=== PATIENT | female | born 1970 | race Caucasian/White ===

== ENCOUNTER 2018-01-30 15:22 | Outpatient (RCR) | payer BC, MEDICARE, SELFPAY ==
[2018-01-30 16:27] VITALS: BP 123/70; PULSE 85; RESP 18; TEMP 36.7; BMI 31.9
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
== END 2018-02-01 23:59 ==
LOC: WC 15:22
PROVIDERS: Family Provider Family Medicine; PCP Family Medicine; Visit Provider Podiatrist
DX: E11.621 Type 2 diabetes mellitus with foot ulcer (principal); E11.42 Type 2 diabetes mellitus with diabetic polyneuropathy; L97.522 Non-pressure chronic ulcer of other part of left foot with fat layer exposed; E11.51 Type 2 diabetes mellitus with diabetic peripheral angiopathy without gangrene; M21.371 Foot drop, right foot; F17.210 Nicotine dependence, cigarettes, uncomplicated
CPT/HCPCS: 11042; 99213; G0463

== ENCOUNTER → 2018-02-19 20:43 | Outpatient (CLI) | payer BC, MEDICARE, SELFPAY ==
--- NOTE | 2018-02-19 21:00 | RAD_ITS ---
STUDY: X-RAY - LEFT FOOT CLINICAL: Female, 47 years old. Left chronic foot ulcer lateral side [place]. TECHNIQUE: 3 view(s) of the foot. COMPARISON: None. FINDINGS: There is a large enthesophyte involving the posterior superior calcaneus at the site of insertion of the Achilles tendon. There is demineralization of osseous structures. Arthropathy of the visualized subtalar, talonavicular, calcaneocuboid, tarsal and tarsometatarsal articulations. Normal metatarsi. Normal metatarsophalangeal joint of the great toe. Normal tibial and fibular sesamoid bones. Normal interphalangeal joint of the great toe. Normal phalanges of the great toe. Normal second through fifth metatarsophalangeal joints. Normal interphalangeal joints and phalanges of the lesser toes. Soft tissue swelling along the medial hindfoot on AP and oblique view. There is arteriosclerosis. RAD/Foot min 3 Views IMPRESSION: Degenerative changes, osteopenia, arteriosclerosis. No sign of osteomyelitis or ulceration detected. Electronically Signed: Violet Durant MD at 1:44 EDT , Service support ,
[2018-02-19 21:53] LABS: ALB/GLOB Ratio 0.7 RATIO (0.9-2.4); AST(SGOT) 9 U/L (15-37); Alanine Aminotransfer ALT/SGPT 18 U/L (13-56); Alkaline Phosphatase 112 U/L (45-117); Anion Gap 10 (5-15); BUN 10 mg/dL (7-18); BUN/Creat Ratio 11.2 RATIO (10-20); Calcium,Total 8.4 mg/dL (8.5-10.1); Chloride 99 mmol/L (98-107); Creatinine, Serum 0.89 mg/dL (0.55-1.02); EST Glomerular Filtration Rate 72 mL/min (>60); Est Glom Filt Rate - Afr Amer 88 mL/min (>60); Globulin 4.2 g/dL (2.2-4.2); Glucose 346 mg/dL (74-106); Potassium 3.6 mmol/L (3.5-5.1); Protein, Total 7.2 g/dL (6.4-8.2); Sodium Level 135 mmol/L (136-145)
[2018-02-19 21:58] LABS: Hemoglobin A1c 9.3 % (4.2-6.3)
[2018-02-19 22:02] LABS: Absolute Neutrophil Count 6.9 X10^3/uL (2.0-7.7); Basophil# 0.01 X10^3/uL; Basophil% 0.1 % (0-1); Eosinophil# 0.05 X10^3/uL; Eosinophils% 0.5 % (0-5); Hematocrit 38.3 % (37-47); Hemoglobin 13.4 g/dl (12.0-15.0); Lymphocyte % 23.8 % (19-41); Mean Corpuscular Hgb 29.9 pg (27.0-32.0); Mean Corpuscular Volume 85.5 fL (81-99); Mean Platelet Vol. 9.4 fl (6.2-12.0); Monocyte# 0.66 X10^3/uL; Monocyte% 6.6 % (0-10); Neutrophil # 6.91 X10^3/uL (2.7-7.7); Neutrophil % 68.6 % (47-70); Platelet Count 291 K/mm3 (150-450); RBC Distribution Width SD 40.1 fl (35.1-43.9); Red Blood Count 4.48 M/mm3 (4.2-5.4); White Blood Count 10.1 K/mm3 (4.4-11.0)
[2018-02-19 22:04] LABS: POSITIVE COUNT NO; POSITIVE DIFFERENTIAL NO; POSITIVE MORPHOLOGY NO
== END ==
PROVIDERS: Family Provider Family Medicine; PCP Family Medicine; Visit Provider Podiatrist
DX: L97.529 Non-pressure chronic ulcer of other part of left foot with unspecified severity (principal)
CPT/HCPCS: 36415; 73630; 80053; 83036; 85025

== ENCOUNTER 2018-02-27 16:15 | Outpatient (RCR) | payer BC, MEDICARE, SELFPAY ==
[2018-02-02 01:46] VITALS: BP 123/70; PULSE 85; RESP 18; TEMP 36.7
[2018-02-20 16:07] VITALS: BP 143/78; PULSE 97; RESP 18; TEMP 36.6
--- NOTE | 2018-02-20 16:56 | PCM.WC.PN ---
(1) Chronic ulcer of left foot with fat layer exposed Status: Chronic Code(s): L97.522 - Non-pressure chronic ulcer of other part of left foot with fat layer exposed (2) Type 2 diabetes mellitus with diabetic polyneuropathy Status: Chronic Code(s): E11.42 - Type 2 diabetes mellitus with diabetic polyneuropathy (3) Malnutrition Status: Suspected Code(s): E46 - Unspecified protein-calorie malnutrition (4) Delayed wound healing Status: Chronic Code(s): T14.8XXD - Other injury of unspecified body region, subsequent encounter (5) Peripheral vascular disease Status: Suspected Code(s): I73.9 - Peripheral vascular disease, unspecified Type of Wound Date of Service: 02/24/18 Chief Complaint: Left foot ulcer History of Wound: This pleasant 47-year-old female with multiple comorbidities was presenting to the wound healing center today for evaluation of left foot ulcer that has delayed healing. She has continued pain. She has missed several appointments due to transportation issues. She did not obtain the recommended vascular tests that were previously ordered. She denies odor or redness. She has been changing the dressing at home. She is very anxious today. Progress of Wound: Stable - Physical Exam Vital Signs Temp Pulse Resp BP 97.8 F 97 18 143/78 H 02/20/18 16:07 02/20/18 16:07 02/20/18 16:07 02/20/18 16:07 General: Alert, Oriented x3, Cooperative Extremities: No cyanosis, Capillary Refill Less than 3 Seconds, No Calf Tenderness - Negative Xavier and Elliott bilateral, Diminished Peripheral Pulses, Edema, - - Dropfoot right lower extremity Skin: Ulcer/ Wound - No purulence, erythema, streaking, odor, or infection left foot. The peripheral skin is atrophic. There is no probing deep structures or deep tissue exposed, - - The base is granular and pale with minimal fibrous tissue Wound Measurements and Assessment WC - Nurse 1 - General Ulcer Measurement Start: 02/20/18 08:03 Freq: Status: Active Protocol: Activity Type Activity Date Activity User E-Sign Co-Sign Detail Recorded Client Recorded Date Recorded By Document 02/20/18 16:07 [facility] [id number] 02/20/18 16:11 [facility] 02/20/18 16:07 Wound Center Nurse 1 [Ulcer Assessment] #2 left lateral foot -Combined with other wound No -Current Size (cm) - Length 1.6 -Current Size (cm) - Width 0.5 -Current Size (cm) - Depth 0.2 -Total Square Cm 0.80 -Photo Taken No -Epithelialization None Present -Tunneling No -Undermining/Tunneling No -Circular Undermining No -Exudate Amt Small (1-33%) -Exudate Type Serous -Wound Margin Thickened -Granulation Amt Small (1-33%) -Granulation Quality [place] -Slough/Fibrin Yes -Necrosis Amt Large (67-100%) -Necrotic Tissue Type Adherent Slough -Texture (Fidelia-wound Skin Appearance) Scarring -Moisture (Fidelia-wound Skin Appearance Dry/Scaly ) -Color (Fidelia-wound Skin Appearance) Assessed -Temperature (Fidelia-wound Skin No Abnormality Appearance) (Pt Warm) -Tenderness on Palpation (Fidelia-wound Yes Skin Appearance) -Ulcer Cleansing Rinsed/ Irrigated with Saline -Foul Odor after Cleansing No -Anesthetic Used 5% Lidocaine Gel [Edema Assessment] -Lower Limb Edema Present Yes -Right Calf (cm) 40.1 -Right Ankle (cm) 23 -Left Calf (cm) 36 -Left Ankle (cm) 21 WC - Nurse 2 - General Ulcer CM Notes Start: 02/20/18 08:03 Freq: Status: Active Protocol: Activity Type Activity Date Activity User E-Sign Co-Sign Detail Recorded Client Recorded Date Recorded By Document 02/20/18 16:38 [id number] 02/20/18 16:38 02/20/18 16:38 Wound Center Nurse 2 [Procedure/Treatment] #2 left lateral foot -Time 16:38 -Correct Patient Yes -Correct Side, Site, Position Yes -Correct Procedure Yes -Procedure Performed Yes -Type of Procedure Debridement -Clinical Debridement Subcutaneous -Post Debridement Size (cm) - Length 1.6 -Post Debridement Size (cm) - Width 0.6 -Post Debridement Size (cm) - Depth 0.2 -Total Square Cm 0.96 -Wound/Ulcer Outcome Not Healed -Ulcer Cleansing Rinsed/ Irrigated with Saline -Foul Odor after Cleansing No -Bioengineered Tissue Yes -Type of bioengineered Tissue [id number] -Expiration Date 09/02/19 -Product Lot Number [id number] -Percent Used 100 -Saline Lot Number [id number] -Bleeding Controlled with Pressure -Treatment Response Procedure Tolerated Well [See Physician Procedure note for Specifics] Pain Scale: 0-10 Numeric [Pain] -Is Patient Pain Free? Yes Musculoskeletal: No Tenderness to Palpation of Joints or Extremities, Muscle Wasting Neurological: - - Lack of normal sensation light touch; hypersensitivity with wound manipulation and periwound manipulation Psych/Mental Status: Normal Affect, Appropriate Debridement Note Post-Debridement Measurements/Treatment WC - Nurse 2 - General Ulcer CM Notes Start: 02/20/18 08:03 Freq: Status: Active Protocol: Activity Type Activity Date Activity User E-Sign Co-Sign Detail Recorded Client Recorded Date Recorded By Document 02/20/18 16:38 [id number] 02/20/18 16:38 02/20/18 16:38 Wound Center Nurse 2 #2 left lateral foot -Time 16:38 -Correct Patient Yes -Correct Side, Site, Position Yes -Correct Procedure Yes -Procedure Performed Yes -Type of Procedure Debridement -Clinical Debridement Subcutaneous -Post Debridement Size (cm) - Length 1.6 -Post Debridement Size (cm) - Width 0.6 -Post Debridement Size (cm) - Depth 0.2 -Total Square Cm 0.96 -Wound/Ulcer Outcome Not Healed -Ulcer Cleansing Rinsed/ Irrigated with Saline -Foul Odor after Cleansing No -Bioengineered Tissue Yes -Type of bioengineered Tissue [id number] -Expiration Date 09/02/19 -Product Lot Number [id number] -Percent Used 100 -Saline Lot Number [id number] -Bleeding Controlled with Pressure -Treatment Response Procedure Tolerated Well Pain Scale: 0-10 Numeric Is Patient Pain Free? Yes Wound debrided: lateral foot Laterality: Left Wound Grade/Stage: grade 1 Type of Debridement: Excisional debridement Anesthesia Used: 4% Lidocaine Solution Depth: in the subcutaneous layer Percentage of wound debrided: 100 Instrument Used: #15 blade Tissue Removed: fibrous, devitalized subcutaneous, biofilm, slough Severity: Fat Layer Exposed Amount of bleeding with debridement: Mild Bleeding Controlled with: Pressure Patient tolerated procedure well Assessment/Plan Assessment: See current problems Plan: I reviewed and discussed her case today. I recommend workup with further diagnostic data including labs (CBC, CMP, hemoglobin A1c), left foot x-ray, and noninvasive arterial studies. Orders were provided at her last visit and were provided again today. She obtain these after clinic at a later time and her white blood cell count is 10.1 and hemoglobin A1c is 9.3%. CMP did not demonstrate gross abnormalities. I reassured her no local or systemic signs of infection are noted. I recommended improved diabetic management and offered her nutrition referral. She refuses today and is upset by this recommendation. A culture was obtained today to assess for unwanted biofilm or bacterial colonization that may be impeding healing. I will monitor for the results. The ulcer site was debrided with a 15 blade as noted in the clinical panel and I recommend change dressing daily with Andree. Due to the chronicity and lack of healing I do recommend an advanced wound care product. Verbal consent was obtained for purapply, antimicrobial and collagen dressing. This is applied according to standard protocol and was secured in place with Steri-Strips and wound veil. She tolerated this well. She was advised to leave this intact until she returns next week. Prior authorization for advanced wound care product derived from amniotic cord cells, epi fix, will be initiated after her periwound inflammation has improved. She is amenable to proceed with this plan. To keep pressure off of the ulcer site by avoiding laying directly on the lateral foot while in bed. I also provided a prescription for a cam walker boot with offloading pocket gets fabricated take pressure off the ulcer site. She was advised to only do partial touchdown to the left lower extremity with walker assistance. We also discussed future order for right drop foot brace and will perform this after her initial wound care plan is started. I recommend nutritional optimization to improve her healing potential at her initial visit. She was advised to stop smoking because this can also impede healing. We discussed the etiology and anticipated healing and management of this ulcer from a wound care standpoint as well as medical standpoint. I answered all of her questions. I recommend she follow-up at the wound healing center 1 week or call sooner if she has any questions or concerns.
[2018-02-27 16:38] VITALS: BP 145/85; PULSE 104; RESP 16; TEMP 36.8
--- NOTE | 2018-02-27 17:43 | PCM.WC.PN ---
(1) Chronic ulcer of left foot with fat layer exposed Status: Chronic Current Visit: Yes Code(s): L97.522 - Non-pressure chronic ulcer of other part of left foot with fat layer exposed (2) Type 2 diabetes mellitus with diabetic polyneuropathy Status: Chronic Current Visit: Yes Code(s): E11.42 - Type 2 diabetes mellitus with diabetic polyneuropathy (3) Malnutrition Status: Suspected Current Visit: Yes Code(s): E46 - Unspecified protein-calorie malnutrition (4) Delayed wound healing Status: Chronic Current Visit: Yes Code(s): T14.8XXD - Other injury of unspecified body region, subsequent encounter (5) Peripheral vascular disease Status: Suspected Current Visit: Yes Code(s): I73.9 - Peripheral vascular disease, unspecified (6) MRSA (methicillin resistant staph aureus) culture positive Status: Chronic Current Visit: Yes Code(s): Z22.322 - Carrier or suspected carrier of Methicillin resistant Staphylococcus aureus Type of Wound Date of Service: 02/27/18 Chief Complaint: Left foot ulcer History of Wound: This pleasant 47-year-old female with multiple comorbidities was presenting to the wound healing center today for evaluation of left foot ulcer that has delayed healing. She has continued pain. Her vascular noninvasive studies are scheduled for this upcoming Sunday and these results are pending. She denies odor or redness. She has been changing the dressing at home. She did start her antibiotic, doxycycline, as advised yesterday due to her MRSA growth in her wound. She kept her dressing clean dry and intact this past week as advised. Progress of Wound: Quality improving - Physical Exam Vital Signs Temp Pulse Resp BP 98.2 F 104 H 16 145/85 H 02/27/18 16:38 02/27/18 16:38 02/27/18 16:38 02/27/18 16:38 General: Alert, Oriented x3, Cooperative Extremities: No cyanosis, Capillary Refill Less than 3 Seconds, No Calf Tenderness - Negative Xavier and Elliott sign bilateral, Diminished Peripheral Pulses, Edema - Mild left lower extremity Skin: Ulcer/ Wound - No purulence, no erythema, streaking, odor, no infection eschar exposed deep tissue left foot. The wound bed quality has improved with increased granulation tissue. In the periwound inflammation is nearly resolved. There is no fluctuance on palpation. Significant tenderness is noted with wound debridement and palpation. Peripheral skin is atrophic and hairless. Wound Measurements and Assessment WC - Nurse 1 - General Ulcer Measurement Start: 02/20/18 08:03 Freq: Status: Active Protocol: Activity Type Activity Date Activity User E-Sign Co-Sign Detail Recorded Client Recorded Date Recorded By Document 02/27/18 16:38 DL [id number] 02/27/18 16:40 DL 02/27/18 16:38 Wound Center Nurse 1 [Ulcer Assessment] #2 left lateral foot -Current Size (cm) - Length 2 -Current Size (cm) - Width 0.5 -Current Size (cm) - Depth 0.2 -Total Square Cm 1.0 -Photo Taken No -Exudate Amt Medium (34-66%) -Exudate Type Serous -Wound Margin Distinct, Outline Attached -Granulation Amt Large (67-100%) -Granulation Quality Red -Necrosis Amt Small (1-33%) -Necrotic Tissue Type Adherent Slough -Structure Exposed N/A -Texture (Fidelia-wound Skin Appearance) Scarring -Moisture (Fidelia-wound Skin Appearance Maceration ) -Color (Fidelia-wound Skin Appearance) No Abnormality -Temperature (Fidelia-wound Skin No Abnormality Appearance) (Pt Warm) -Tenderness on Palpation (Fidelia-wound No Skin Appearance) -Ulcer Cleansing Rinsed/ Irrigated with Saline -Foul Odor after Cleansing No -Anesthetic Used 5% Lidocaine Gel - Nurse 2 - General Ulcer CM Notes Start: 02/20/18 08:03 Freq: Status: Active Protocol: Activity Type Activity Date Activity User E-Sign Co-Sign Detail Recorded Client Recorded Date Recorded By Document 02/27/18 17:17 [id number] 02/27/18 17:22 02/27/18 17:17 Wound Center Nurse 2 [Procedure/Treatment] -Time 17:17 -Correct Patient Yes -Correct Side, Site, Position Yes -Correct Procedure Yes -Procedure Performed Yes -Type of Procedure Debridement -Clinical Debridement Subcutaneous -Post Debridement Size (cm) - Length 2.1 -Post Debridement Size (cm) - Width 0.6 -Post Debridement Size (cm) - Depth 0.2 -Total Square Cm 1.26 -Wound/Ulcer Outcome Not Healed -Ulcer Cleansing Rinsed/ Irrigated with Saline -Foul Odor after Cleansing No -Bioengineered Tissue Yes -Type of bioengineered Tissue [id number] -Expiration Date 07/14/19 -Product Lot Number [id number] -Percent Used 100 -Saline Lot Number [id number] -Topical Lidocaine (%) 5 -Bleeding Controlled with Pressure -Treatment Response Procedure Tolerated Well [See Physician Procedure note for Specifics] Pain Scale: 0-10 Numeric [Pain] -Is Patient Pain Free? Yes Musculoskeletal: No Tenderness to Palpation of Joints or Extremities, Muscle Wasting, - - Right lower extremity dropfoot Neurological: Sensory exam intact to light touch and pain - Hypersensitivity Psych/Mental Status: Normal Affect, Appropriate Debridement Note Post-Debridement Measurements/Treatment WC - Nurse 2 - General Ulcer CM Notes Start: 02/20/18 08:03 Freq: Status: Active Protocol: Activity Type Activity Date Activity User E-Sign Co-Sign Detail Recorded Client Recorded Date Recorded By Document 02/20/18 16:38 [id number] 02/20/18 16:38 Document 02/27/18 17:17 [email or web address] 02/27/18 17:22 02/20/18 02/27/18 16:38 17:17 Wound Center Nurse 2 #2 left lateral foot -Time 16:38 17:17 -Correct Patient Yes Yes -Correct Side, Site, Position Yes Yes -Correct Procedure Yes Yes -Procedure Performed Yes Yes -Type of Procedure Debridement Debridement -Clinical Debridement Subcutaneous Subcutaneous -Post Debridement Size (cm) - Length 1.6 2.1 -Post Debridement Size (cm) - Width 0.6 0.6 -Post Debridement Size (cm) - Depth 0.2 0.2 -Total Square Cm 0.96 1.26 -Wound/Ulcer Outcome Not Healed Not Healed -Ulcer Cleansing Rinsed/ Rinsed/ Irrigated with Irrigated with Saline Saline -Foul Odor after Cleansing No No -Bioengineered Tissue Yes Yes -Type of bioengineered Tissue [id number] -Expiration Date 09/02/19 07/14/19 -Product Lot Number [id number] -Percent Used 100 100 -Saline Lot Number [id number] -Topical Lidocaine (%) 5 -Bleeding Controlled with Pressure Pressure -Treatment Response Procedure Procedure Tolerated Well Tolerated Well Pain Scale: 0-10 Numeric Is Patient Pain Free? Yes Yes Wound debrided: lateral foot Laterality: Left Wound Grade/Stage: grade 1 Type of Debridement: Excisional debridement Anesthesia Used: 4% Lidocaine Solution Depth: in the subcutaneous layer Percentage of wound debrided: 100 Instrument Used: #15 blade Tissue Removed: fibrous, devitalized subcutaneous, biofilm, slough Severity: Fat Layer Exposed Amount of bleeding with debridement: Mild Bleeding Controlled with: Pressure Patient tolerated procedure well Assessment/Plan Active Problems Type 2 diabetes mellitus with diabetic polyneuropathy (Chronic) Chronic ulcer of left foot with fat layer exposed (Chronic) Delayed wound healing (Chronic) MRSA (methicillin resistant staph aureus) culture positive (Chronic) Assessment: See current problems Plan: I reviewed and discussed her case today. I recommend workup with further diagnostic data including labs (CBC, CMP, hemoglobin A1c), left foot x-ray, and noninvasive arterial studies. These results were reviewed as a following: She obtain these after clinic at a later time and her white blood cell count is 10.1 and hemoglobin A1c is 9.3%. CMP did not demonstrate gross abnormalities. I reassured her no local or systemic signs of infection are noted. I recommended improved diabetic management and offered her nutrition referral. She refuses today and is upset by this recommendation. A culture was obtained today to assess for unwanted biofilm or bacterial colonization that may be impeding healing; MRSA was identified. She was advised to complete the course of doxycycline. The ulcer site was debrided with a 15 blade as noted in the clinical panel and I recommend additional puraply application today. due to the chronicity and lack of healing I do recommend an advanced wound care product. Verbal consent was obtained for puraply, antimicrobial and collagen dressing. This is applied according to standard protocol and was secured in place with Steri-Strips and wound veil. She tolerated this well. She was advised to leave this intact until she returns next week. Prior authorization for advanced wound care product derived from amniotic cord cells, epi fix, will be initiated reviewed [facility]. The indications, purpose, plan application and management were; she is amenable to proceed. To keep pressure off of the ulcer site by avoiding laying directly on the lateral foot while in bed. I also provided a prescription for a cam walker boot with offloading pocket gets fabricated take pressure off the ulcer site. She was advised to only do partial touchdown to the left lower extremity with walker assistance. We also discussed future order for right drop foot brace and will perform this after her initial wound care plan is started. I recommend nutritional optimization to improve her healing potential at her initial visit. She was advised to stop smoking because this can also impede healing. We discussed the etiology and anticipated healing and management of this ulcer from a wound care standpoint as well as medical standpoint. She is scheduled for noninvasive vascular study this Sunday and I encouraged her to attend as scheduled. I answered all of her questions. I recommend she follow-up at the wound healing center 1 week or call sooner if she has any questions or concerns.
== END 2018-03-03 23:59 ==
LOC: WC 16:15
PROVIDERS: Family Provider Family Medicine; PCP Family Medicine; Visit Provider Podiatrist
DX: E11.621 Type 2 diabetes mellitus with foot ulcer (principal); E11.42 Type 2 diabetes mellitus with diabetic polyneuropathy; E11.51 Type 2 diabetes mellitus with diabetic peripheral angiopathy without gangrene; L97.522 Non-pressure chronic ulcer of other part of left foot with fat layer exposed; Z86.14 Personal history of Methicillin resistant Staphylococcus aureus infection
CPT/HCPCS: 15275; 87070; 87077; 87186; 87205; Q4172

== ENCOUNTER 2018-03-20 15:45 | Outpatient (RCR) | payer BC, MEDICARE, SELFPAY ==
[2018-03-04 01:19] VITALS: BP 145/85; PULSE 104; RESP 16; TEMP 36.8
[2018-03-05 15:52] VITALS: BP 153/83; PULSE 102; RESP 18; TEMP 35.7
--- NOTE | 2018-03-05 16:32 | PCM.WC.PN ---
(1) Chronic ulcer of left foot with fat layer exposed Status: Chronic Current Visit: Yes Code(s): L97.522 - Non-pressure chronic ulcer of other part of left foot with fat layer exposed (2) Type 2 diabetes mellitus with diabetic polyneuropathy Status: Chronic Current Visit: Yes Code(s): E11.42 - Type 2 diabetes mellitus with diabetic polyneuropathy (3) Malnutrition Status: Suspected Current Visit: Yes Code(s): E46 - Unspecified protein-calorie malnutrition (4) Delayed wound healing Status: Chronic Current Visit: Yes Code(s): T14.8XXD - Other injury of unspecified body region, subsequent encounter (5) MRSA (methicillin resistant staph aureus) culture positive Status: Chronic Current Visit: Yes Code(s): Z22.322 - Carrier or suspected carrier of Methicillin resistant Staphylococcus aureus (6) Left foot pain Status: Chronic Current Visit: Yes Code(s): M79.672 - Pain in left foot Type of Wound Date of Service: 03/05/18 Chief Complaint: Left foot ulcer History of Wound: This pleasant 47-year-old female with multiple comorbidities was presenting to the wound healing center today for evaluation of left foot ulcer that has delayed healing. She has continued pain at night and with ulcer debridements; she is extremely anxious about debridement today. She did not obtain her noninvasive vascular study test yet. She denies odor or redness. She has been changing the dressing at home. She has 1 day left of her antibiotic doxycycline. She kept her dressing clean dry and intact this past week as advised. Progress of Wound: Improving - Physical Exam Vital Signs Temp Pulse Resp BP 96.2 F L 102 H 18 153/83 H 03/05/18 15:52 03/05/18 15:52 03/05/18 15:52 03/05/18 15:52 General: Alert, Oriented x3, Cooperative Extremities: No cyanosis, Capillary Refill Less than 3 Seconds, No Calf Tenderness - Negative Xavier and Elliott left, Diminished Peripheral Pulses, Edema Skin: Ulcer/ Wound - No purulence, no erythema, streaking, no odor, no infection. There is peripheral epithelialization noted and no deep tissue was noted. The peripheral skin is atrophic and hairless left foot Wound Measurements and Assessment WC - Nurse 1 - General Ulcer Measurement Start: 03/05/18 15:52 Freq: Status: Active Protocol: Activity Type Activity Date Activity User E-Sign Co-Sign Detail Recorded Client Recorded Date Recorded By Document 03/05/18 15:52 DL [id number] 03/05/18 15:57 DL 03/05/18 15:52 Wound Center Nurse 1 [Ulcer Assessment] #2 left lateral foot -Current Size (cm) - Length 2.1 -Current Size (cm) - Width 0.6 -Current Size (cm) - Depth 0.3 -Total Square Cm 1.26 -Photo Taken No -Exudate Amt Medium (34-66%) -Exudate Type Serosanguineous -Wound Margin Thickened -Granulation Amt Medium (34-66%) -Granulation Quality [place] -Necrosis Amt Medium (34-66%) -Necrotic Tissue Type Adherent Slough -Structure Exposed N/A -Texture (Fidelia-wound Skin Appearance) Localized Edema Scarring -Moisture (Fidelia-wound Skin Appearance Maceration ) -Color (Fidelia-wound Skin Appearance) No Abnormality -Temperature (Fidelia-wound Skin No Abnormality Appearance) (Pt Warm) -Tenderness on Palpation (Fidelia-wound No Skin Appearance) -Ulcer Cleansing Wound Cleanser -Foul Odor after Cleansing No -Anesthetic Used 4% Lidocaine Solution [Edema Assessment] -Left Calf (cm) 35.5 -Left Ankle (cm) 21.3 WC - Nurse 2 - General Ulcer CM Notes Start: 03/05/18 15:52 Freq: Status: Active Protocol: Activity Type Activity Date Activity User E-Sign Co-Sign Detail Recorded Client Recorded Date Recorded By Document 03/05/18 16:18 [id number] 03/05/18 16:29 03/05/18 16:18 Wound Center Nurse 2 [Procedure/Treatment] #2 left lateral foot -Time 16:18 -Correct Patient Yes -Correct Side, Site, Position Yes -Correct Procedure Yes -Procedure Performed Yes -Post Debridement Size (cm) - Length 2.1 -Post Debridement Size (cm) - Width 0.6 -Post Debridement Size (cm) - Depth 0.3 -Total Square Cm 1.26 -Wound/Ulcer Outcome Not Healed -Ulcer Cleansing Rinsed/ Irrigated with Saline -Foul Odor after Cleansing No -Bioengineered Tissue Yes -Type of bioengineered Tissue [id number] -Expiration Date 07/14/19 -Product Lot Number [id number] -Percent Used 100 -Topical Lidocaine (%) 5 -Bleeding Controlled with NA -Other no debridement today -Treatment Response Procedure Tolerated Well [See Physician Procedure note for Specifics] Pain Scale: 0-10 Numeric [Pain] -Is Patient Pain Free? Yes Musculoskeletal: No Tenderness to Palpation of Joints or Extremities, Muscle Wasting, - - Compartments remain soft left foot Neurological: Sensory exam intact to light touch and pain - Hypersensitivity with touch to the wound bed as well as the adjacent foot left Psych/Mental Status: Normal Affect, Agitated, Anxious Debridement Note Post-Debridement Measurements/Treatment WC - Nurse 2 - General Ulcer CM Notes Start: 03/05/18 15:52 Freq: Status: Active Protocol: Activity Type Activity Date Activity User E-Sign Co-Sign Detail Recorded Client Recorded Date Recorded By Document 03/05/18 16:18 TM [id number] 03/05/18 16:29 TM 03/05/18 16:18 Wound Center Nurse 2 #2 left lateral foot -Time 16:18 -Correct Patient Yes -Correct Side, Site, Position Yes -Correct Procedure Yes -Procedure Performed Yes -Post Debridement Size (cm) - Length 2.1 -Post Debridement Size (cm) - Width 0.6 -Post Debridement Size (cm) - Depth 0.3 -Total Square Cm 1.26 -Wound/Ulcer Outcome Not Healed -Ulcer Cleansing Rinsed/ Irrigated with Saline -Foul Odor after Cleansing No -Bioengineered Tissue Yes -Type of bioengineered Tissue [id number] -Expiration Date 07/14/19 -Product Lot Number [id number] -Percent Used 100 -Topical Lidocaine (%) 5 -Bleeding Controlled with NA -Other no debridement today -Treatment Response Procedure Tolerated Well Pain Scale: 0-10 Numeric Is Patient Pain Free? Yes No debridement was completed today - The patient refused Assessment/Plan Active Problems Type 2 diabetes mellitus with diabetic polyneuropathy (Chronic) Chronic ulcer of left foot with fat layer exposed (Chronic) Delayed wound healing (Chronic) MRSA (methicillin resistant staph aureus) culture positive (Chronic) Left foot pain (Chronic) Assessment: See current problems Plan: I reviewed and discussed her case today. I recommend workup with further diagnostic data including labs (CBC, CMP, hemoglobin A1c), left foot x-ray, and noninvasive arterial studies. These results were reviewed as following: She obtain these after clinic at a later time and her white blood cell count is 10.1 and hemoglobin A1c is 9.3%. CMP did not demonstrate gross abnormalities. I reassured her no local or systemic signs of infection are noted. I recommended improved diabetic management and offered her nutrition referral. She refuses again today and is upset by this recommendation. A culture was obtained today to assess for unwanted biofilm or bacterial colonization that may be impeding healing; MRSA was identified. She was advised to complete the course of doxycycline and she is almost done. The ulcer site was not performed because she refused and was screaming and kicking her foot around. due to the chronicity and lack of healing I do recommend an advanced wound care product. Verbal consent was obtained for puraply, antimicrobial and collagen dressing. This is applied according to standard protocol and was secured in place with Steri-Strips and wound veil. She tolerated this well. She was advised to leave this intact until she returns next week. Prior authorization for advanced wound care product derived from amniotic cord cells, epi fix, is still pending. The indications, purpose, plan application and management were; she is amenable to proceed. To keep pressure off of the ulcer site by avoiding laying directly on the lateral foot while in bed. I also provided a prescription for a cam walker boot with offloading pocket gets fabricated take pressure off the ulcer site. She was advised to only do partial touchdown to the left lower extremity with walker assistance. We also discussed future order for right drop foot brace and will perform this after her initial wound care plan is started. I recommend nutritional optimization to improve her healing potential at her initial visit. She was advised to stop smoking because this can also impede healing. We discussed the etiology and anticipated healing and management of this ulcer from a wound care standpoint as well as medical standpoint. She is scheduled for noninvasive vascular study and I encouraged her to attend as scheduled. I answered all of her questions. I recommend she follow-up at the wound healing center 1 week or call sooner if she has any questions or concerns.
[2018-03-13 15:52] VITALS: BP 120/76; PULSE 94; RESP 18; TEMP 36
--- NOTE | 2018-03-13 16:55 | PCM.WC.PN ---
(1) Chronic ulcer of left foot with fat layer exposed Status: Chronic Current Visit: Yes Code(s): L97.522 - Non-pressure chronic ulcer of other part of left foot with fat layer exposed (2) Type 2 diabetes mellitus with diabetic polyneuropathy Status: Chronic Current Visit: Yes Code(s): E11.42 - Type 2 diabetes mellitus with diabetic polyneuropathy (3) Malnutrition Status: Chronic Current Visit: Yes Code(s): E46 - Unspecified protein-calorie malnutrition (4) Delayed wound healing Status: Chronic Current Visit: Yes Code(s): T14.8XXD - Other injury of unspecified body region, subsequent encounter (5) MRSA (methicillin resistant staph aureus) culture positive Status: Chronic Current Visit: Yes Code(s): Z22.322 - Carrier or suspected carrier of Methicillin resistant Staphylococcus aureus (6) Left foot pain Status: Chronic Current Visit: Yes Code(s): M79.672 - Pain in left foot Type of Wound Date of Service: 03/13/18 Chief Complaint: Left foot ulcer History of Wound: This pleasant 47-year-old female with multiple comorbidities was presenting to the wound healing center today for evaluation of left foot ulcer that has delayed healing. She did not obtain her noninvasive vascular study test yet. She denies odor or redness. She has been changing the dressing at home. She completed the course of doxycycline. She kept her dressing clean dry and intact this past week as advised. Progress of Wound: Improving - Physical Exam Vital Signs Temp Pulse Resp BP 96.8 F L 94 18 120/76 03/13/18 15:52 03/13/18 15:52 03/13/18 15:52 03/13/18 15:52 General: Alert, Oriented x3, Cooperative Extremities: No cyanosis, Capillary Refill Less than 3 Seconds, No Calf Tenderness - Negative Xavier and Elliott left, Diminished Peripheral Pulses, Edema - Left foot mild Skin: Ulcer/ Wound - No purulence, erythema, streaking, odor, infection. There is no eschar deep tissue exposed. There is significant peripheral ulcer site maceration and moisture that is resolved after gentle debridement. The peripheral skin is hairless and atrophic left foot the wound bed also has improved to a granular state Wound Measurements and Assessment WC - Nurse 1 - General Ulcer Measurement Start: 03/05/18 15:52 Freq: Status: Active Protocol: Activity Type Activity Date Activity User E-Sign Co-Sign Detail Recorded Client Recorded Date Recorded By Document 03/13/18 15:52 DV [id number] 03/13/18 16:06 DV 03/13/18 15:52 Wound Center Nurse 1 [Ulcer Assessment] #2 left lateral foot -Combined with other wound No -Current Size (cm) - Length 2.1 -Current Size (cm) - Width 0.6 -Current Size (cm) - Depth 0.3 -Total Square Cm 1.26 -Date of Last Picture (Recall this 03/13/18 field) -Photo Taken Yes -Tunneling No -Undermining/Tunneling No -Circular Undermining No -Exudate Amt Medium (34-66%) -Exudate Type Serosanguineous -Wound Margin Indistinct, Non -Visible -Slough/Fibrin Yes -Necrosis Amt Large (67-100%) -Necrotic Tissue Type Adherent Slough -Structure Exposed None/Limited to Skin Breakdown -Texture (Fidelia-wound Skin Appearance) Assessed Induration Scarring -Moisture (Fidelia-wound Skin Appearance Assessed ) Maceration Weeping -Color (Fidelia-wound Skin Appearance) Assessed -Temperature (Fidelia-wound Skin No Abnormality Appearance) (Pt Warm) -Ulcer Cleansing Rinsed/ Irrigated with Saline -Foul Odor after Cleansing No -Anesthetic Used 4% Lidocaine Solution WC - Nurse 2 - General Ulcer CM Notes Start: 03/05/18 15:52 Freq: Status: Active Protocol: Activity Type Activity Date Activity User E-Sign Co-Sign Detail Recorded Client Recorded Date Recorded By Document 03/13/18 16:28 DV [id number] 03/13/18 16:36 DV 03/13/18 16:28 Wound Center Nurse 2 [Procedure/Treatment] -Time 16:30 -Correct Patient Yes -Correct Side, Site, Position Yes -Correct Procedure Yes -Procedure Performed Yes -Type of Procedure Debridement -Clinical Debridement Subcutaneous -Post Debridement Size (cm) - Length 2.2 -Post Debridement Size (cm) - Width 0.7 -Post Debridement Size (cm) - Depth 0.3 -Total Square Cm 1.54 -Wound/Ulcer Outcome Not Healed -Ulcer Cleansing Rinsed/ Irrigated with Saline -Foul Odor after Cleansing No -Bioengineered Tissue Yes -Type of bioengineered Tissue [id number] -Expiration Date 09/02/19 -Product Lot Number [id number] -Percent Used 100 -Saline Lot Number [id number] -Topical Lidocaine (%) 4 -Bleeding Controlled with NA -Treatment Response Procedure Tolerated Well [See Physician Procedure note for Specifics] Pain Scale: 0-10 Numeric [Pain] -Is Patient Pain Free? Yes Musculoskeletal: No Tenderness to Palpation of Joints or Extremities, Muscle Wasting, - - Compartments soft left foot Neurological: Sensory exam intact to light touch and pain - Hypersensitive with subjective burning and radiating symptoms noted as well Psych/Mental Status: Normal Affect, Agitated, Anxious, Restless Debridement Note Post-Debridement Measurements/Treatment WC - Nurse 2 - General Ulcer CM Notes Start: 03/05/18 15:52 Freq: Status: Active Protocol: Activity Type Activity Date Activity User E-Sign Co-Sign Detail Recorded Client Recorded Date Recorded By Document 03/05/18 16:18 TM [id number] 03/05/18 16:29 TM Document 03/13/18 16:28 DV [id number] 03/13/18 16:36 DV 03/05/18 03/13/18 16:18 16:28 Wound Center Nurse 2 #2 left lateral foot -Time 16:18 16:30 -Correct Patient Yes Yes -Correct Side, Site, Position Yes Yes -Correct Procedure Yes Yes -Procedure Performed Yes Yes -Type of Procedure Debridement -Clinical Debridement Subcutaneous -Post Debridement Size (cm) - Length 2.1 2.2 -Post Debridement Size (cm) - Width 0.6 0.7 -Post Debridement Size (cm) - Depth 0.3 0.3 -Total Square Cm 1.26 1.54 -Wound/Ulcer Outcome Not Healed Not Healed -Ulcer Cleansing Rinsed/ Rinsed/ Irrigated with Irrigated with Saline Saline -Foul Odor after Cleansing No No -Bioengineered Tissue Yes Yes -Type of bioengineered Tissue [id number] -Expiration Date 07/14/19 09/02/19 -Product Lot Number [id number] -Percent Used 100 100 -Saline Lot Number [id number] -Topical Lidocaine (%) 5 4 -Bleeding Controlled with NA NA -Other no debridement today -Treatment Response Procedure Procedure Tolerated Well Tolerated Well Pain Scale: 0-10 Numeric Is Patient Pain Free? Yes Yes Wound debrided: lateral foot Laterality: Left Wound Grade/Stage: grade 1 Type of Debridement: Excisional debridement Anesthesia Used: 4% Lidocaine Solution Depth: in the subcutaneous layer Percentage of wound debrided: 100 Instrument Used: #15 blade Tissue Removed: fibrous, devitalized subcutaneous, biofilm, slough Severity: Fat Layer Exposed Amount of bleeding with debridement: Mild Bleeding Controlled with: Pressure Patient tolerated procedure well Assessment/Plan Active Problems Type 2 diabetes mellitus with diabetic polyneuropathy (Chronic) Chronic ulcer of left foot with fat layer exposed (Chronic) Malnutrition (Chronic) Delayed wound healing (Chronic) MRSA (methicillin resistant staph aureus) culture positive (Chronic) Left foot pain (Chronic) Assessment: See current problems Plan: I reviewed and discussed her case today. I recommend workup with further diagnostic data including labs (CBC, CMP, hemoglobin A1c), left foot x-ray, and noninvasive arterial studies. These results were reviewed as following: She obtain these after clinic at a later time and her white blood cell count is 10.1 and hemoglobin A1c is 9.3%. CMP did not demonstrate gross abnormalities. I reassured her no local or systemic signs of infection are noted. I recommended improved diabetic management and offered her nutrition referral. She refuses again today and is upset by this recommendation. A culture was obtained today to assess for unwanted biofilm or bacterial colonization that may be impeding healing; MRSA was identified. She was advised to complete the course of doxycycline and she is almost done. The ulcer site was debrided and an excisional subcutaneous manner as noted in the clinical nursing panel. Due to the chronicity and lack of healing I do recommend an advanced wound care product, epi fix. The prior authorization for this is still pending. Verbal consent was obtained for puraply patient today, antimicrobial and collagen dressing. This was applied according to standard protocol and was secured in place with Steri-Strips and wound veil. She tolerated this well. She was advised to leave this intact until she returns next week. To keep pressure off of the ulcer site by avoiding laying directly on the lateral foot while in bed. I also provided a prescription for a cam walker boot with offloading pocket gets fabricated take pressure off the ulcer site. She was advised to only do partial touchdown to the left lower extremity with walker assistance. We also discussed future order for right drop foot brace and will perform this after her initial wound care plan is started. I recommend nutritional optimization to improve her healing potential at her initial visit. She was advised to stop smoking because this can also impede healing. We discussed the etiology and anticipated healing and management of this ulcer from a wound care standpoint as well as medical standpoint. She is scheduled for noninvasive vascular study and I encouraged her to attend as scheduled. I answered all of her questions. I recommend she follow-up at the wound healing center 1 week or call sooner if she has any questions or concerns.
--- NOTE | 2018-03-13 16:59 | PN.PCM_ITS ---
(1) Chronic ulcer of left foot with fat layer exposed Status: Chronic Current Visit: Yes Code(s): L97.522 - Non-pressure chronic ulcer of other part of left foot with fat layer exposed (2) Type 2 diabetes mellitus with diabetic polyneuropathy Status: Chronic Current Visit: Yes Code(s): E11.42 - Type 2 diabetes mellitus with diabetic polyneuropathy (3) Malnutrition Status: Chronic Current Visit: Yes Code(s): E46 - Unspecified protein- calorie malnutrition (4) Delayed wound healing Status: Chronic Current Visit: Yes Code(s): T14.8XXD - Other injury of unspecified body region, subsequent encounter (5) MRSA (methicillin resistant staph aureus) culture positive Status: Chronic Current Visit: Yes Code(s): Z22.322 - Carrier or suspected carrier of Methicillin resistant Staphylococcus aureus (6) Left foot pain Status: Chronic Current Visit: Yes Code(s): M79.672 - Pain in left foot Type of Wound Date of Service: 03/13/18 Chief Complaint: Left foot ulcer History of Wound: This pleasant 47-year-old female with multiple comorbidities was presenting to the wound healing center today for evaluation of left foot ulcer that has delayed healing. She did not obtain her noninvasive vascular study test yet. She denies odor or redness. She has been changing the dressing at home. She completed the course of doxycycline. She kept her dressing clean dry and intact this past week as advised. Progress of Wound: Improving - Physical Exam Vital Signs Temp Pulse Resp BP 96.8 F L 94 18 120/76 03/13/18 15:52 03/13/18 15:52 03/13/18 15:52 03/13/18 15:52 General: Alert, Oriented x3, Cooperative Extremities: No cyanosis, Capillary Refill Less than 3 Seconds, No Calf Tenderness - Negative Xavier and Elliott left, Diminished Peripheral Pulses, Edema - Left foot mild Skin: Ulcer/ Wound - No purulence, erythema, streaking, odor, infection. There is no eschar deep tissue exposed. There is significant peripheral ulcer site maceration and moisture that is resolved after gentle debridement. The peripheral skin is hairless and atrophic left foot the wound bed also has improved to a granular state Wound Measurements and Assessment WC - Nurse 1 - General Ulcer Measurement Start: 03/05/18 15:52 Freq: Status: Active Protocol: Activity Type Activity Date Activity User E-Sign Co-Sign Detail Recorded Client Recorded Date Recorded By Document 03/13/18 15:52 DV [id number] 03/13/18 16:06 DV 03/13/18 15:52 Wound Center Nurse 1 [Ulcer Assessment] #2 left lateral foot -Combined with other wound No -Current Size (cm) - Length 2.1 -Current Size (cm) - Width 0.6 -Current Size (cm) - Depth 0.3 -Total Square Cm 1.26 -Date of Last Picture (Recall this 03/13/18 field) -Photo Taken Yes -Tunneling No -Undermining/Tunneling No -Circular Undermining No -Exudate Amt Medium (34-66%) -Exudate Type Serosanguineous -Wound Margin Indistinct, Non -Visible -Slough/Fibrin Yes -Necrosis Amt Large (67-100%) -Necrotic Tissue Type Adherent Slough -Structure Exposed None/Limited to Skin Breakdown -Texture (Fidelia-wound Skin Appearance) Assessed Induration Scarring -Moisture (Fidelia-wound Skin Appearance Assessed ) Maceration Weeping -Color (Fidelia-wound Skin Appearance) Assessed -Temperature (Fidelia-wound Skin No Abnormality Appearance) (Pt Warm) -Ulcer Cleansing Rinsed/ Irrigated with Saline -Foul Odor after Cleansing No -Anesthetic Used 4% Lidocaine Solution WC - Nurse 2 - General Ulcer CM Notes Start: 03/05/18 15:52 Freq: Status: Active Protocol: Activity Type Activity Date Activity User E-Sign Co-Sign Detail Recorded Client Recorded Date Recorded By Document 03/13/18 16:28 DV [id number] 03/13/18 16:36 DV 03/13/18 16:28 Wound Center Nurse 2 [Procedure/Treatment] -Time 16:30 -Correct Patient Yes -Correct Side, Site, Position Yes -Correct Procedure Yes -Procedure Performed Yes -Type of Procedure Debridement -Clinical Debridement Subcutaneous -Post Debridement Size (cm) - Length 2.2 -Post Debridement Size (cm) - Width 0.7 -Post Debridement Size (cm) - Depth 0.3 -Total Square Cm 1.54 -Wound/Ulcer Outcome Not Healed -Ulcer Cleansing Rinsed/ Irrigated with Saline -Foul Odor after Cleansing No -Bioengineered Tissue Yes -Type of bioengineered Tissue [id number] -Expiration Date 09/02/19 -Product Lot Number [id number] -Percent Used 100 -Saline Lot Number [id number] -Topical Lidocaine (%) 4 -Bleeding Controlled with NA -Treatment Response Procedure Tolerated Well [See Physician Procedure note for Specifics] Pain Scale: 0-10 Numeric [Pain] -Is Patient Pain Free? Yes Musculoskeletal: No Tenderness to Palpation of Joints or Extremities, Muscle Was ting, - - Compartments soft left foot Neurological: Sensory exam intact to light touch and pain - Hypersensitive with subjective burning and radiating symptoms noted as well Psych/Mental Status: Normal Affect, Agitated, Anxious, Restless Debridement Note Post-Debridement Measurements/Treatment WC - Nurse 2 - General Ulcer CM Notes Start: 03/05/18 15:52 Freq: Status: Active Protocol: Activity Type Activity Date Activity User E-Sign Co-Sign Detail Recorded Client Recorded Date Recorded By Document 03/05/18 16:18 TM [id number] 03/05/18 16:29 TM Document 03/13/18 16:28 DV [id number] 03/13/18 16:36 DV 03/05/18 03/13/18 16:18 16:28 Wound Center Nurse 2 #2 left lateral foot -Time 16:18 16:30 -Correct Patient Yes Yes -Correct Side, Site, Position Yes Yes -Correct Procedure Yes Yes -Procedure Performed Yes Yes -Type of Procedure Debridement -Clinical Debridement Subcutaneous -Post Debridement Size (cm) - Length 2.1 2.2 -Post Debridement Size (cm) - Width 0.6 0.7 -Post Debridement Size (cm) - Depth 0.3 0.3 -Total Square Cm 1.26 1.54 -Wound/Ulcer Outcome Not Healed Not Healed -Ulcer Cleansing Rinsed/ Rinsed/ Irrigated with Irrigated with Saline Saline -Foul Odor after Cleansing No No -Bioengineered Tissue Yes Yes -Type of bioengineered Tissue [id number] -Expiration Date 07/14/19 09/02/19 -Product Lot Number [id number] -Percent Used 100 100 -Saline Lot Number [id number] -Topical Lidocaine (%) 5 4 -Bleeding Controlled with NA NA -Other no debridement today -Treatment Response Procedure Procedure Tolerated Well Tolerated Well Pain Scale: 0-10 Numeric Is Patient Pain Free? Yes Yes Wound debrided: lateral foot Laterality: Left Wound Grade/Stage: grade 1 Type of Debridement: Excisional debridement Anesthesia Used: 4% Lidocaine Solution Depth: in the subcutaneous layer Percentage of wound debrided: 100 Instrument Used: #15 blade Tissue Removed: fibrous, devitalized subcutaneous, biofilm, slough Severity: Fat Layer Exposed Amount of bleeding with debridement: Mild Bleeding Controlled with: Pressure Patient tolerated procedure well Assessment/Plan Active Problems Type 2 diabetes mellitus with diabetic polyneuropathy (Chronic) Chronic ulcer of left foot with fat layer exposed (Chronic) Malnutrition (Chronic) Delayed wound healing (Chronic) MRSA (methicillin resistant staph aureus) culture positive (Chronic) Left foot pain (Chronic) Assessment: See current problems Plan: I reviewed and discussed her case today. I recommend workup with further diagnostic data including labs (CBC, CMP, hemoglobin A1c), left foot x-ray, and noninvasive arterial studies. These results were reviewed as following: She obtain these after clinic at a later time and her white blood cell count is 10.1 and hemoglobin A1c is 9.3%. CMP did not demonstrate gross abnormalities. I reassured her no local or systemic signs of infection are noted. I recommended improved diabetic management and offered her nutrition referral. She refuses again today and is upset by this recommendation. A culture was obtained today to assess for unwanted biofilm or bacterial colonization that may be impeding healing; MRSA was identified. She was advised to complete the course of doxycycline and she is almost done. The ulcer site was debrided and an excisional subcutaneous manner as noted in the clinical nursing panel. Due to the chronicity and lack of healing I do recommend an advanced wound care product, epi fix. The prior authorization for this is still pending. Verbal consent was obtained for puraply patient today, antimicrobial and collagen dressing. This was applied according to standard protocol and was secured in place with Steri-Strips and wound veil. She tolerated this well. She was advised to leave this intact until she returns next week. To keep pressure off of the ulcer site by avoiding laying directly on the lateral foot while in bed. I also provided a prescription for a cam walker boot with offloading pocket gets fabricated take pressure off the ulcer site. She was advised to only do p artial touchdown to the left lower extremity with walker assistance. We also discussed future order for right drop foot brace and will perform this after her initial wound care plan is started. I recommend nutritional optimization to improve her healing potential at her initial visit. She was advised to stop smoking because this can also impede healing. We discussed the etiology and anticipated healing and management of this ulcer from a wound care standpoint as well as medical standpoint. She is scheduled for noninvasive vascular study and I encouraged her to attend as scheduled. I answered all of her questions. I recommend she follow-up at the wound healing center 1 week or call sooner if she has any questions or concerns.
== END 2018-04-03 23:59 ==
LOC: WC 15:45
PROVIDERS: Family Provider Family Medicine; PCP Family Medicine; Visit Provider Podiatrist
DX: E11.621 Type 2 diabetes mellitus with foot ulcer (principal); E11.42 Type 2 diabetes mellitus with diabetic polyneuropathy; L97.522 Non-pressure chronic ulcer of other part of left foot with fat layer exposed
CPT/HCPCS: 15275; Q4172

== ENCOUNTER 2019-04-02 16:15 | Outpatient (RCR) | payer OTHER, MEDICARE, SELFPAY ==
[2019-03-19 15:50] VITALS: BP 151/102; PULSE 99; RESP 18; TEMP 37; BMI 27.4
--- NOTE | 2019-03-19 16:32 | PCM.WC.PN ---
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 Status: Chronic Current Visit: Yes Code(s): L97.513 - Non-pressure chronic ulcer of other part of right foot with necrosis of muscle (2) Type 2 diabetes mellitus with diabetic polyneuropathy Status: Chronic Current Visit: Yes Code(s): E11.42 - Type 2 diabetes mellitus with diabetic polyneuropathy (3) Chronic ulcer of left foot with fat layer exposed Status: Chronic Current Visit: Yes Code(s): L97.522 - Non-pressure chronic ulcer of other part of left foot with fat layer exposed (4) Malnutrition Status: Chronic Current Visit: Yes Code(s): E46 - Unspecified protein-calorie malnutrition (5) Delayed wound healing Status: Chronic Current Visit: Yes Code(s): T14.8XXD - Other injury of unspecified body region, subsequent encounter (6) Peripheral vascular disease Status: Suspected Current Visit: Yes Code(s): I73.9 - Peripheral vascular disease, unspecified (7) Amputation of right foot Status: Acute Current Visit: Yes Code(s): S98.911A - Complete traumatic amputation of right foot, level unspecified, initial encounter (8) Malnutrition Status: Chronic Current Visit: Yes Code(s): E46 - Unspecified protein-calorie malnutrition (9) Walking difficulty due to ankle and foot Status: Chronic Current Visit: Yes Code(s): R26.2 - Difficulty in walking, not elsewhere classified Type of Wound Date of Service: 03/21/19 Chief Complaint: Left foot ulcer. Right foot ulcer and recent amputation and tendon lengthening History of Wound: This pleasant and anxious 48-year-old female with multiple comorbidities was seen today for new conditions. He is previously well-known to the wound healing center and has not been seen in the recent timeframe. He had a midfoot amputation and gastrocnemius recession performed at an outside facility within the past 2 weeks for a gas gangrene infection. She is continued drainage and wound and was referred here by her surgeon. Sutures are still intact and she has some black tissue progression at the stump site. She also has a left foot ulcer which she reports is been present for less than 2 weeks. She reports her surgeon placed a skin graft. She reports unfortunately she was seen in the emergency room and this was inadvertently removed with the dressing. She has been nonweightbearing to the right lower extremity and tries to walk on her heel on the left. She performs dressing changes at home. She is on oral vancomycin. She was seen by an infectious disease and vascular surgeon during her outside facility hospital admission. She denies fever, chill, nausea, vomiting today. She has continued loss of appetite and relates she is been diagnosed with anorexia and behavioral condition secondary to stress. Progress of Wound: Stable bilateral - Physical Exam Vital Signs Temp Pulse Resp BP 98.6 F 99 18 151/102 H 03/19/19 15:50 03/19/19 15:50 03/19/19 15:50 03/19/19 15:50 General: Alert, Oriented x3, Cooperative, No apparent distress HEENT: Atraumatic Extremities: Capillary Refill Less than 3 Seconds - To left foot digits and to dorsal stump site. There is an area of dusky changes to the medial and central amputation stump site with no capillary refill time, No Calf Tenderness - Negative Xavier and Elliott sign bilateral. Compartments are soft to palpate bilateral lower extremities., Diminished Peripheral Pulses, Edema - Mild right foot amputation stump site, - - Dorsal contraction of lesser toes left foot with varus rotation of the fifth and prominent fifth metatarsal head. Midfoot amputation right. Adequate ankle dorsiflexion with knee flexed and extended right lower extremity Skin: Ulcer/ Wound - There is no purulence, erythema, streaking, odor, maceration today bilateral lower extremity. The left foot ulcer site is granular with some interspersed fibrous tissue and there is no exposed bone, tendon, or necrosis. The right foot amputation stump site sutures remain intact with dusky formation as noted above. There is a plantar central skin discontinuity which does communicate with deep tissue including muscle. Parts of this is devitalized and there is also fibrous tissue and normal granulation tissue and slough. There is no purulence on expression. The gastrocnemius recession site is intact with sutures well aligned and skin is coapting Wound Measurements and Assessment WC - Nurse 1 - General Ulcer Measurement Start: 03/19/19 15:50 Freq: Status: Active Protocol: Activity Type Activity Date Activity User E-Sign Co-Sign Detail Recorded Client Recorded Date Recorded By Document 03/19/19 15:50 MW [id number] 03/19/19 15:58 MW 03/19/19 15:50 Wound Center Nurse 1 [Ulcer Assessment] #5 LEFT LATERAL FOOT -Combined with other wound No -Current Size (cm) - Length 0.9 -Current Size (cm) - Width 0.7 -Current Size (cm) - Depth 1.0 -Total Square Cm 0.63 -Photo Taken No -Epithelialization None Present -Tunneling No -Undermining/Tunneling No -Circular Undermining No -Exudate Amt Large -Exudate Type Serosanguineous -Wound Margin Distinct, Outline Attached -Granulation Amt None Present (0 %) -Granulation Quality N/A -Slough/Fibrin Yes -Necrosis Amt Large (67-100%) -Necrotic Tissue Type Adherent Slough -Structure Exposed N/A -Texture (Fidelia-wound Skin Appearance) Assessed, Localized Edema -Moisture (Fidelia-wound Skin Appearance Assessed, ) Maceration -Color (Fidelia-wound Skin Appearance) No Abnormality, Assessed -Temperature (Fidelia-wound Skin No Abnormality Appearance) (Pt Warm) -Tenderness on Palpation (Fidelia-wound No Skin Appearance) -Ulcer Cleansing SOAP AND WATER -Foul Odor after Cleansing No -Anesthetic Used 4% Lidocaine Solution #4 LEFT DORSAL FOOT -Combined with other wound No -Current Size (cm) - Length 1.2 -Current Size (cm) - Width 1.5 -Current Size (cm) - Depth 0.2 -Total Square Cm 1.80 -Date of Last Picture (Recall this 03/19/19 field) -Photo Taken Yes -Epithelialization None Present -Tunneling No -Undermining/Tunneling No -Circular Undermining No -Exudate Amt Large -Exudate Type Serosanguineous -Wound Margin Distinct, Outline Attached -Granulation Amt None Present (0 %) -Granulation Quality N/A -Slough/Fibrin Yes -Necrosis Amt Large (67-100%) -Necrotic Tissue Type Adherent Slough -Structure Exposed N/A -Texture (Fidelia-wound Skin Appearance) Assessed, Localized Edema -Moisture (Fidelia-wound Skin Appearance Assessed, ) Maceration -Color (Fidelia-wound Skin Appearance) No Abnormality, Assessed -Temperature (Fidelia-wound Skin No Abnormality Appearance) (Pt Warm) -Tenderness on Palpation (Fidelia-wound No Skin Appearance) -Ulcer Cleansing SOAP AND WATER -Foul Odor after Cleansing No -Anesthetic Used 4% Lidocaine Solution #3 right foot -Combined with other wound No -Current Size (cm) - Length 3.0 -Current Size (cm) - Width 4.0 -Current Size (cm) - Depth 2.5 -Total Square Cm 12.00 -Date of Last Picture (Recall this 03/19/19 field) -Photo Taken Yes -Epithelialization None Present -Tunneling No -Undermining/Tunneling No -Circular Undermining No -Exudate Amt Large -Exudate Type Serosanguineous -Wound Margin Distinct, Outline Attached -Granulation Amt None Present (0 %) -Granulation Quality N/A -Slough/Fibrin Yes -Necrosis Amt Large (67-100%) -Necrotic Tissue Type Adherent Slough -Structure Exposed N/A -Texture (Fidelia-wound Skin Appearance) Assessed, Localized Edema -Moisture (Fidelia-wound Skin Appearance Assessed, ) Maceration -Color (Fidelia-wound Skin Appearance) Assessed, Ecchymosis -Temperature (Fidelia-wound Skin No Abnormality Appearance) (Pt Warm) -Tenderness on Palpation (Fidelia-wound Yes Skin Appearance) -Ulcer Cleansing soap and water -Foul Odor after Cleansing No -Anesthetic Used 4% Lidocaine Solution [Edema Assessment] -Lower Limb Edema Present No WC - Nurse 2 - General Ulcer CM Notes Start: 03/19/19 15:50 Freq: Status: Active Protocol: Activity Type Activity Date Activity User E-Sign Co-Sign Detail Recorded Client Recorded Date Recorded By Document 03/19/19 16:20 DAVID [id number] 03/19/19 16:22 DAVID 03/19/19 16:20 Wound Center Nurse 2 [Procedure/Treatment] #5 LEFT LATERAL FOOT -Time 16:20 -Correct Patient Yes -Correct Side, Site, Position Yes -Correct Procedure Yes -Procedure Performed Yes -Type of Procedure Debridement -Clinical Debridement Subcutaneous -Post Debridement Size (cm) - Length 1.0 -Post Debridement Size (cm) - Width 0.8 -Post Debridement Size (cm) - Depth 1.0 -Total Square Cm 0.80 -Wound/Ulcer Outcome Not Healed -Ulcer Cleansing Rinsed/ Irrigated with Saline -Foul Odor after Cleansing No -Bioengineered Tissue No -Bleeding Controlled with Pressure -Offloading No -Treatment Response Procedure Tolerated Well #4 LEFT DORSAL FOOT -Time 16:21 -Correct Patient Yes -Correct Side, Site, Position Yes -Correct Procedure Yes -Procedure Performed Yes -Type of Procedure Debridement -Clinical Debridement Subcutaneous -Post Debridement Size (cm) - Length 1.2 -Post Debridement Size (cm) - Width 1.6 -Post Debridement Size (cm) - Depth 0.2 -Total Square Cm 1.92 -Wound/Ulcer Outcome Not Healed -Ulcer Cleansing Rinsed/ Irrigated with Saline -Foul Odor after Cleansing No -Bioengineered Tissue No -Bleeding Controlled with Pressure -Offloading No -Treatment Response Procedure Tolerated Well #3 right foot -Time 16:21 -Correct Patient Yes -Correct Side, Site, Position Yes -Correct Procedure Yes -Procedure Performed Yes -Type of Procedure Debridement -Clinical Debridement Subcutaneous -Post Debridement Size (cm) - Length 3.1 -Post Debridement Size (cm) - Width 4.1 -Post Debridement Size (cm) - Depth 2.5 -Total Square Cm 12.71 -Wound/Ulcer Outcome Not Healed -Ulcer Cleansing Rinsed/ Irrigated with Saline -Foul Odor after Cleansing No -Bioengineered Tissue No -Bleeding Controlled with Pressure -Offloading Yes -Type of Offloading Surgical Shoe -Treatment Response Procedure Tolerated Well [See Physician Procedure note for Specifics] Pain Scale: 0-10 Numeric [Pain] -Is Patient Pain Free? Yes Musculoskeletal: No Tenderness to Palpation of Joints or Extremities, Muscle Wasting Neurological: - - Lack of normal epicritic sensation light touch is consistent with neuropathy status Psych/Mental Status: Normal Affect, Appropriate Debridement Note Post-Debridement Measurements/Treatment WC - Nurse 2 - General Ulcer CM Notes Start: 03/19/19 15:50 Freq: Status: Active Protocol: Activity Type Activity Date Activity User E-Sign Co-Sign Detail Recorded Client Recorded Date Recorded By Document 03/19/19 16:20 [id number] 03/19/19 16:22 DAVID 03/19/19 16:20 Wound Center Nurse 2 #5 LEFT LATERAL FOOT -Time 16:20 -Correct Patient Yes -Correct Side, Site, Position Yes -Correct Procedure Yes -Procedure Performed Yes -Type of Procedure Debridement -Clinical Debridement Subcutaneous -Post Debridement Size (cm) - Length 1.0 -Post Debridement Size (cm) - Width 0.8 -Post Debridement Size (cm) - Depth 1.0 -Total Square Cm 0.80 -Wound/Ulcer Outcome Not Healed -Ulcer Cleansing Rinsed/ Irrigated with Saline -Foul Odor after Cleansing No -Bioengineered Tissue No -Bleeding Controlled with Pressure -Offloading No -Treatment Response Procedure Tolerated Well #4 LEFT DORSAL FOOT -Time 16:21 -Correct Patient Yes -Correct Side, Site, Position Yes -Correct Procedure Yes -Procedure Performed Yes -Type of Procedure Debridement -Clinical Debridement Subcutaneous -Post Debridement Size (cm) - Length 1.2 -Post Debridement Size (cm) - Width 1.6 -Post Debridement Size (cm) - Depth 0.2 -Total Square Cm 1.92 -Wound/Ulcer Outcome Not Healed -Ulcer Cleansing Rinsed/ Irrigated with Saline -Foul Odor after Cleansing No -Bioengineered Tissue No -Bleeding Controlled with Pressure -Offloading No -Treatment Response Procedure Tolerated Well #3 right foot -Time 16:21 -Correct Patient Yes -Correct Side, Site, Position Yes -Correct Procedure Yes -Procedure Performed Yes -Type of Procedure Debridement -Clinical Debridement Subcutaneous -Post Debridement Size (cm) - Length 3.1 -Post Debridement Size (cm) - Width 4.1 -Post Debridement Size (cm) - Depth 2.5 -Total Square Cm 12.71 -Wound/Ulcer Outcome Not Healed -Ulcer Cleansing Rinsed/ Irrigated with Saline -Foul Odor after Cleansing No -Bioengineered Tissue No -Bleeding Controlled with Pressure -Offloading Yes -Type of Offloading Surgical Shoe -Treatment Response Procedure Tolerated Well Pain Scale: 0-10 Numeric Is Patient Pain Free? Yes Wound debrided: lateral foot Laterality: Left Wound Grade/Stage: grade 1 Type of Debridement: Excisional debridement Anesthesia Used: 5% Lidocaine Gel Depth: in the subcutaneous layer Percentage of wound debrided: 100 Instrument Used: #15 blade Tissue Removed: fibrous, devitalized subcutaneous, biofilm, slough Severity: Fat Layer Exposed Amount of bleeding with debridement: Mild Bleeding Controlled with: Pressure Patient tolerated procedure well - Additional Wound Wound debrided: plantar foot Laterality: Right Wound Grade/Stage: grade 3 Type of Debridement: Excisional debridement Anesthesia Used: 5% Lidocaine Gel Depth: in the subcutaneous layer Percentage of wound debrided: 100 Instrument Used: #15 blade Tissue Removed: fibrous, devitalized subcutaneous, biofilm, slough Severity: Fat Layer Exposed Amount of bleeding with debridement: Mild Bleeding Controlled with: Pressure Patient tolerated procedure: Patient tolerated procedure well Assessment/Plan Active Problems Type 2 diabetes mellitus with diabetic polyneuropathy (Chronic) Chronic ulcer of left foot with fat layer exposed (Chronic) Malnutrition (Chronic) Delayed wound healing (Chronic) 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 I recommend workup with further diagnostic data including labs (CBC, CMP, hemoglobin A1c), left foot x-ray, and noninvasive arterial studies. Medical record release will be initiated to obtain this from her recent hospital admission. I do recommend she update to the foot x-ray was her second view the images and this order was provided today. I reassured her no local or systemic signs of infection are noted. To complete antibiotic course as advised by her surgeon and infectious disease physician; medical records are being requested. I recommended improved diabetic management and offered her nutrition referral. It is noted she has been recently diagnosed with behavioral issues and anorexia. I also offered her a counseling service referral and she will consider this in the future. The ulcer site was debrided and an excisional subcutaneous manner as noted in the clinical nursing panel. I recommend she changes the right foot dressing daily with a wick packed saline wet-to-dry gauze to the plantar foot ulcer site and dry gauze to the surgical sites. I recommend she changes the left foot dressing daily with Aquacel Ag. These dressings were applied today and she was educated on proper application. To keep pressure off of the ulcer site by heel weightbearing in a surgical shoe on the left foot; an order was provided today with an offloading heel density Plastizote liner. To continue with complete nonweightbearing status to the right lower extremity protect her surgical site. To follow-up with her surgeon as advised. Am amenable to see her for wound care at the wound healing center and can offer advanced wound products if she has delays in healing and hyperbaric oxygen therapy is also a treatment option. She was advised to stop smoking because this can also impede healing. We discussed the etiology and anticipated healing and management of this ulcer from a wound care standpoint as well as medical standpoint. I recommend she follow-up at the wound healing center 1 week or call sooner if she has any questions or concerns.
[2019-03-26 16:58] VITALS: BP 159/100; PULSE 93; RESP 18; TEMP 36.2; BMI 27.4
--- NOTE | 2019-03-26 17:10 | WC ---
SUTURES INTACT TO R FOOT
--- NOTE | 2019-03-26 17:51 | WC ---
SALINE MOISTENED GAUZE TO RIGHT FOOT
--- NOTE | 2019-03-26 17:57 | PN.PCM_ITS ---
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 Status: Chronic Current Visit: Yes Code(s): L97.513 - Non-pressure chronic ulcer of other part of right foot with necrosis of muscle (2) Type 2 diabetes mellitus with diabetic polyneuropathy Status: Chronic Current Visit: Yes Code(s): E11.42 - Type 2 diabetes mellitus with diabetic polyneuropathy (3) Chronic ulcer of left foot with fat layer exposed Status: Chronic Current Visit: Yes Code(s): L97.522 - Non-pressure chronic ulcer of other part of left foot with fat layer exposed (4) Malnutrition Status: Chronic Current Visit: Yes Code(s): E46 - Unspecified protein- calorie malnutrition (5) Delayed wound healing Status: Chronic Current Visit: Yes Code(s): T14.8XXD - Other injury of unspecified body region, subsequent encounter (6) Peripheral vascular disease Status: Suspected Current Visit: Yes Code(s): I73.9 - Peripheral vascular disease, unspecified (7) Amputation of right foot Status: Acute Current Visit: Yes Code(s): S98.911A - Complete traumatic amputation of right foot, level unspecified, initial encounter (8) Malnutrition Status: Chronic Current Visit: Yes Code(s): E46 - Unspecified protein- calorie malnutrition (9) Walking difficulty due to ankle and foot Status: Chronic Current Visit: Yes Code(s): R26.2 - Difficulty in walking, not elsewhere classified Type of Wound Date of Service: 03/26/19 Chief Complaint: Left foot ulcer. Right foot ulcer and recent amputation and tendon lengthening History of Wound: This pleasant and anxious 48-year-old female with multiple comorbidities was seen today for new conditions. She had a right lower extremity Lisfranc disarticulation amputation, tendo Achilles lengthening, and wound VAC application performed at an outside facility on February 28, 2019 with direct marketing coordinator Azalia Omer for a gas gangrene infection. She also had left lower extremity ulcer excision with application of advanced wound healing product, ACell matrix. Her clearance fragments from her right foot were negative for osteomyelitis. Her medical records from were reviewed in detail and it is noted she is also seen by an infectious disease specialist who had her on IV vancomycin and meropenem. She was then discharged and oral Levaquin was recommended. It is also noted a below the knee amputation was recommended initially. She had postoperative Dakin's applied. Her previous microbiology reports demonstrated E faealis, E. coli, Proteus mirabilis, staph epidermidis, and morganii growth. Her last hemoglobin A1c was 8.6% and her albumin on record was 1.9. Her previous postoperative x-ray reports demonstrati ng adequate amputation and her preoperative MRI report was also reviewed consistent with osteomyelitis and a necrotizing fasciitis. She has continued drainage and wound and was referred here by her surgeon. Sutures are still intact and she has some black tissue progression at the stump site. She is with her and friend today he reports she does need to follow-up with her infectious disease physician and her surgeon as previously recommended. She has been nonweightbearing to the right limb and places weight on the toes of her left foot without any protective shoe gear. I do not see the results of her previous vascular studies and these will be requested again from [facility]. I cannot obtain these files this test will be repeated. She is very anxious and apprehensive to have ulcer debridement and presented to the wound center appointment late due to reported anxiety. Progress of Wound: Stable bilateral - Physical Exam Vital Signs Temp Pulse Resp BP 97.1 F L 93 18 159/100 H 03/26/19 16:58 03/26/19 16:58 03/26/19 16:58 03/26/19 16:58 General: Alert, Oriented x3, Cooperative, No apparent distress HEENT: Atraumatic Extremities: No cyanosis, Capillary Refill Less than 3 Seconds, No Calf Tenderness - Negative Xavier and Elliott sign bilateral, Diminished Peripheral Pulses, Edema Skin: Ulcer/ Wound - No purulence, odor, erythema, streaking, maceration. The ulcer the plantar right foot has improved granulation tissue and there is some deep muscle exposed. The sutures remain intact and Lisfranc's reticulation and there is still continued dusky medial and central aspect. There is some moisture noted to the lateral aspect of this incision site without adjacent bogginess or fluctuance. The ulcer on the dorsal and distal lateral left foot is granular and fibrous. There is no exposed bone or joint. There is no sign of infection. The peripheral skin is healthy atrophic. Wound Measurements and Assessment WC - Nurse 1 - General Ulcer Measurement Start: 03/19/19 15:50 Freq: Status: Active Protocol: Activity Type Activity Date Activity User E-Sign Co-Sign Detail Recorded Client Recorded Date Recorded By Document 03/26/19 16:58 RB [id number] 03/26/19 17:09 RB 03/26/19 16:58 Wound Center Nurse 1 [Ulcer Assessment] #5 LEFT LATERAL FOOT -Combined with other wound No -Current Size (cm) - Length 0.6 -Current Size (cm) - Width 0.3 -Current Size (cm) - Depth 0.2 -Total Square Cm 0.18 -Photo Taken No -Epithelialization None Present -Tunneling No -Undermining/Tunneling No -Circular Undermining No -Exudate Amt None Present -Wound Margin Distinct, Outline Attached -Granulation Amt None Present (0 %) -Slough/Fibrin Yes -Necrosis Amt Large (67-100%) -Necrotic Tissue Type Adherent Slough -Texture (Fidelia-wound Skin Appearance) Assessed,Callus ,Scarring -Moisture (Fidelia-wound Skin Appearance Assessed,Dry/ ) Scaly -Color (Fidelia-wound Skin Appearance) Assessed -Temperature (Fidelia-wound Skin No Abnormality Appearance) (Pt Warm) -Tenderness on Palpation (Fidelia-wound Yes Skin Appearance) -Ulcer Cleansing Rinsed/ Irrigated with Saline -Foul Odor after Cleansing Yes, Due to Product Use -Anesthetic Used 4% Lidocaine Solution #4 LEFT DORSAL FOOT -Combined with other wound No -Current Size (cm) - Length 1 -Current Size (cm) - Width 0.6 -Current Size (cm) - Depth 0.1 -Total Square Cm 0.6 -Photo Taken No -Epithelialization Small 1-33% -Tunneling No -Undermining/Tunneling No -Circular Undermining No -Exudate Amt Small -Exudate Type Serosanguineous -Wound Margin Flat & Intact -Granulation Amt Small (1-33%) -Granulation Quality Red -Slough/Fibrin Yes -Necrosis Amt Small (1-33%) -Necrotic Tissue Type Adherent Slough -Texture (Fidelia-wound Skin Appearance) Assessed -Moisture (Fidelia-wound Skin Appearance Assessed,Dry/ ) Scaly -Color (Fidelia-wound Skin Appearance) Assessed -Temperature (Fidelia-wound Skin No Abnormality Appearance) (Pt Warm) -Tenderness on Palpation (Fidelia-wound Yes Skin Appearance) -Ulcer Cleansing Rinsed/ Irrigated with Saline -Foul Odor after Cleansing No -Anesthetic Used 4% Lidocaine Solution #3 right foot -Combined with other wound No -Current Size (cm) - Length 2.8 -Current Size (cm) - Width 2.5 -Current Size (cm) - Depth 1.9 -Total Square Cm 7.00 -Photo Taken No -Epithelialization None Present -Tunneling No -Undermining/Tunneling Yes -Undermining/Tunneling Starts (O' 8 clock) -Undermining/Tunneling Ends (O'clock) 11 -Maximum Distance (cm) 1.7 -Circular Undermining No -Exudate Amt Medium -Exudate Type Serosanguineous -Wound Margin Distinct, Outline Attached -Granulation Amt Small (1-33%) -Granulation Quality [place] -Slough/Fibrin Yes -Necrosis Amt Large (67-100%) -Necrotic Tissue Type Eschar -Texture (Fidelia-wound Skin Appearance) Assessed, Localized Edema ,Scarring -Moisture (Fidelia-wound Skin Appearance Assessed,Dry/ ) Scaly -Color (Fidelia-wound Skin Appearance) Assessed, Erythema -Temperature (Fidelia-wound Skin No Abnormality Appearance) (Pt Warm) -Tenderness on Palpation (Fidelia-wound No Skin Appearance) -Ulcer Cleansing Rinsed/ Irrigated with Saline -Foul Odor after Cleansing No -Anesthetic Used 4% Lidocaine Solution [Edema Assessment] -Lower Limb Edema Present Yes -Right Calf (cm) 37 -Right Ankle (cm) 24.6 -Left Calf (cm) 33.5 -Left Ankle (cm) 21.5 WC - Nurse 2 - General Ulcer CM Notes Start: 03/19/19 15:50 Freq: Status: Active Protocol: Activity Type Activity Date Activity User E-Sign Co-Sign Detail Recorded Client Recorded Date Recorded By Document 03/26/19 17:38 AN [id number] 03/26/19 17:45 AN 03/26/19 17:38 Wound Center Nurse 2 [Procedure/Treatment] #5 LEFT LATERAL FOOT -Time 17:38 -Correct Patient Yes -Correct Side, Site, Position Yes -Correct Procedure Yes -Procedure Performed Yes -Type of Procedure Debridement -Clinical Debridement Subcutaneous -Post Debridement Size (cm) - Length 0.7 -Post Debridement Size (cm) - Width 0.4 -Post Debridement Size (cm) - Depth 0.2 -Total Square Cm 0.28 -Wound/Ulcer Outcome Not Healed -Ulcer Cleansing Rinsed/ Irrigated with Saline -Foul Odor after Cleansing No -Bioengineered Tissue No -Bleeding Controlled with Pressure -Offloading Yes -Treatment Response Procedure Tolerated Well #4 LEFT DORSAL FOOT -Time 17:38 -Correct Patient Yes -Correct Side, Site, Position Yes -Correct Procedure Yes -Procedure Performed Yes -Type of Procedure Debridement -Clinical Debridement Subcutaneous -Post Debridement Size (cm) - Length 1.1 -Post Debridement Size (cm) - Width 0.7 -Post Debridement Size (cm) - Depth 0.6 -Total Square Cm 0.77 -Wound/Ulcer Outcome Not Healed [See Physician Procedure note for Specifics] Pain Scale: 0-10 Numeric [Pain] -Is Patient Pain Free? Yes Musculoskeletal: No Tenderness to Palpation of Joints or Extremities, Muscle Wasting, - - Midfoot amputation right. Adequate ankle dorsiflexion with the knee flex and extend the right lower extremity. Dorsal contraction of lesser toes left lower extremity. Pain with also manipulation and debridement bilateral Neurological: - - Lack of normal epicritic sensation light touch is consistent with neuropathy bilateral lower extremities Psych/Mental Status: Normal Affect, Appropriate Debridement Note Post-Debridement Measurements/Treatment WC - Nurse 2 - General Ulcer CM Notes Start: 03/19/19 15:50 Freq: Status: Active Protocol: Activity Type Activity Date Activity User E-Sign Co-Sign Detail Recorded Client Recorded Date Recorded By Document 03/19/19 16:20 [id number] 03/19/19 16:22 Document 03/26/19 17:38 AN [id number] 03/26/19 17:45 AN 03/19/19 03/26/19 16:20 17:38 Wound Center Nurse 2 #5 LEFT LATERAL FOOT -Time 16:20 17:38 -Correct Patient Yes Yes -Correct Side, Site, Position Yes Yes -Correct Procedure Yes Yes -Procedure Performed Yes Yes -Type of Procedure Debridement Debridement -Clinical Debridement Subcutaneous Subcutaneous -Post Debridement Size (cm) - Length 1.0 0.7 -Post Debridement Size (cm) - Width 0.8 0.4 -Post Debridement Size (cm) - Depth 1.0 0.2 -Total Square Cm 0.80 0.28 -Wound/Ulcer Outcome Not Healed Not Healed -Ulcer Cleansing Rinsed/ Rinsed/ Irrigated with Irrigated with Saline Saline -Foul Odor after Cleansing No No -Bioengineered Tissue No No -Bleeding Controlled with Pressure Pressure -Offloading No Yes -Treatment Response Procedure Procedure Tolerated Well Tolerated Well #4 LEFT DORSAL FOOT -Time 16:21 17:38 -Correct Patient Yes Yes -Correct Side, Site, Position Yes Yes -Correct Procedure Yes Yes -Procedure Performed Yes Yes -Type of Procedure Debridement Debridement -Clinical Debridement Subcutaneous Subcutaneous -Post Debridement Size (cm) - Length 1.2 1.1 -Post Debridement Size (cm) - Width 1.6 0.7 -Post Debridement Size (cm) - Depth 0.2 0.6 -Total Square Cm 1.92 0.77 -Wound/Ulcer Outcome Not Healed Not Healed -Ulcer Cleansing Rinsed/ Irrigated with Saline -Foul Odor after Cleansing No -Bioengineered Tissue No -Bleeding Controlled with Pressure -Offloading No -Treatment Response Procedure Tolerated Well #3 right foot -Time 16:21 -Correct Patient Yes -Correct Side, Site, Position Yes -Correct Procedure Yes -Procedure Performed Yes -Type of Procedure Debridement -Clinical Debridement Subcutaneous -Post Debridement Size (cm) - Length 3.1 -Post Debridement Size (cm) - Width 4.1 -Post Debridement Size (cm) - Depth 2.5 -Total Square Cm 12.71 -Wound/Ulcer Outcome Not Healed -Ulcer Cleansing Rinsed/ Irrigated with Saline -Foul Odor after Cleansing No -Bioengineered Tissue No -Bleeding Controlled with Pressure -Offloading Yes -Type of Offloading Surgical Shoe -Treatment Response Procedure Tolerated Well Pain Scale: 0-10 Numeric Is Patient Pain Free? Yes Yes Wound debrided: plantar foot Laterality: Right Wound Grade/Stage: grade 3 Type of Debridement: Excisional debridement Anesthesia Used: 5% Lidocaine Gel Depth: in the subcutaneous layer Percentage of wound debrided: 100 Instrument Used: #15 blade Tissue Removed: fibrous, devitalized subcutaneous, biofilm, slough Severity: Fat Layer Exposed Amount of bleeding with debridement: Mild Bleeding Controlled with: Pressure Patient tolerated procedure well - Additional Wound Wound debrided: lateral foot distal Laterality: Left Wound Grade/Stage: grade 1 Type of Debridement: Excisional debridement Anesthesia Used: 5% Lidocaine Gel Depth: in the subcutaneous layer Percentage of wound debrided: 100 Instrument Used: #15 blade Tissue Removed: fibrous, devitalized subcutaneous, biofilm, slough Severity: Fat Layer Exposed Amount of bleeding with debridement: Mild Bleeding Controlled with: Pressure Patient tolerated procedure: Patient tolerated procedure well Assessment/Plan Active Problems Type 2 diabetes mellitus with diabetic polyneuropathy (Chronic) Chronic ulcer of left foot with fat layer exposed (Chronic) Malnutrition (Chronic) Delayed wound healing (Chronic) 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 Medical records from [facility] were reviewed. It is noted the vascular studies were included and this will be requested again. If I cannot obtain copies of these files with the next week and updated test will simply be ordered at [facility]. I do recommend she update to the foot x-ray was her second view the images and this order was provided last week. It is noted that she did not have this done and I encouraged her to do so. I reassured her no local or systemic signs of infection are noted. To complete antibiotic course as advised by her surgeon and infectious disease physician. She was she was advised to follow-up with his disease specialist and surgeon as advised and scheduled. I recommended improved diabetic management and offered her nutrition referral. Recommended nutritional supplementation to optimize healing. The ulcer site was debrided and an excisional subcutaneous manner as noted in the clinical nursing panel. I recommend she changes the right foot dressing daily with a wicked packed saline wet-to-dry gauze to the plantar foot ulcer site and dry gauze to the surgical sites. I recommend she changes the left foot dressing daily with Aquacel Ag. These dressings were applied today and she was educated on proper application. To keep pressure off of the ulcer site by heel weightbearing in a surgical shoe on the left foot; an order was previously provided with an offloading heel density Plastizote liner. She admits she did not obtain this because she cannot use this. She reports she cannot get her heel flat and the surgical shoe is uncomfortable and not supportive. Therefore an updated order for a cam walker with offloading liners was provided today and she is advised to obtain some foot and ankle center for the left lower extremity. To continue with complete nonweightbearing status to the right lower extremity protect her surgical site. To use assistive device. The right foot condition appears to be consistent with a previous grade 3 ulcer treated successfully medically and surgically. Clearance fragments demonstrate lack of current osteomyelitis. Hyperbaric oxygen therapy is also a treatment option due to the remaining grade 3 infected myositis that appears to be clinically improving. However, she is struggling even arrive during clinic hours or her clinical assessment and transportation and compliance are needed on a daily basis to complete hyperbaric oxygen therapy course. She was advised to stop smoking because this can also impede healing. We discussed the etiology and anticipated healing and management of this ulcer from a wound care standpoint as well as medical standpoint. I recommend she follow-up at the wound healing center 1 week or call sooner if she has any questions or concerns. I answered all of her questions today.
[2019-04-02 16:44] VITALS: BP 147/88; PULSE 94; RESP 18; TEMP 37; BMI 27.4
--- NOTE | 2019-04-02 17:19 | PCM.WC.PN ---
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 Status: Chronic Code(s): L97.513 - Non-pressure chronic ulcer of other part of right foot with necrosis of muscle (2) Type 2 diabetes mellitus with diabetic polyneuropathy Status: Chronic Code(s): E11.42 - Type 2 diabetes mellitus with diabetic polyneuropathy (3) Chronic ulcer of left foot with fat layer exposed Status: Chronic Code(s): L97.522 - Non-pressure chronic ulcer of other part of left foot with fat layer exposed (4) Malnutrition Status: Chronic Code(s): E46 - Unspecified protein-calorie malnutrition (5) Delayed wound healing Status: Chronic Code(s): T14.8XXD - Other injury of unspecified body region, subsequent encounter (6) Peripheral vascular disease Status: Suspected Code(s): I73.9 - Peripheral vascular disease, unspecified (7) Amputation of right foot Status: Acute Code(s): S98.911A - Complete traumatic amputation of right foot, level unspecified, initial encounter (8) Malnutrition Status: Chronic Code(s): E46 - Unspecified protein-calorie malnutrition (9) Walking difficulty due to ankle and foot Status: Chronic Code(s): R26.2 - Difficulty in walking, not elsewhere classified Type of Wound Date of Service: 04/02/19 Chief Complaint: Left foot ulcer. Right foot ulcer and recent amputation and tendon lengthening History of Wound: This pleasant and anxious 48-year-old female with multiple comorbidities was seen today for new conditions. She had a right lower extremity Lisfranc disarticulation amputation, tendo Achilles lengthening, and wound VAC application performed at an outside facility on February 28, 2019 with transport truck driver Azalia Omer for a gas gangrene infection. She also had left lower extremity ulcer excision with application of advanced wound healing product, ACell matrix. Her clearance fragments from her right foot were negative for osteomyelitis. Her medical [facility] from [facility] were reviewed in detail and it is noted she is also seen by an infectious disease specialist who had her on IV vancomycin and meropenem. She was then discharged and oral Levaquin was recommended. It is also noted a below the knee amputation was recommended initially. She had postoperative Dakin's applied. Her previous microbiology reports demonstrated E faealis, E. coli, Proteus mirabilis, staph epidermidis, and morganii growth. Her last hemoglobin A1c was 8.6% and her albumin on record was 1.9. Her previous postoperative x-ray reports demonstrating adequate amputation and her preoperative MRI report was also reviewed consistent with osteomyelitis and a necrotizing fasciitis. She has continued drainage and wound and was referred here by her surgeon. Sutures are still intact and she has some black tissue progression at the stump site. She is with her and friend today he reports she does need to follow-up with her infectious disease physician and her surgeon as previously recommended (this upcoming week). She has been nonweightbearing to the right limb and places weight on the toes of her left foot without any protective shoe gear. I do not see the results of her previous vascular studies and these will be requested again from [facility]. I cannot obtain these files this test will be repeated. She is very anxious and apprehensive to have ulcer debridement and presented to the wound center appointment late again today. She thought about the previously recommended nutrition referral and is amendable to proceed. It is noted she states she did not eat anything all day. Progress of Wound: Stable bilateral - Physical Exam Vital Signs Temp Pulse Resp BP 98.6 F 94 18 147/88 H 04/02/19 16:44 04/02/19 16:44 04/02/19 16:44 04/02/19 16:44 General: Alert, Oriented x3, Cooperative, No apparent distress HEENT: Atraumatic Extremities: No cyanosis, Capillary Refill Less than 3 Seconds, No Calf Tenderness - Negative Xavier breath and bilateral, Diminished Peripheral Pulses, Edema - Mild bilateral lower extremities, - - Right midfoot amputation at the Lisfranc level and restored ankle dorsiflexion with knee flexed and extended right. Left dorsal contracture lesser digits with prominent fifth metatarsal head noted Skin: Ulcer/ Wound - There is no purulence, odor, erythema, streaking or acute infection noted today. There is deep tissue exposed on the right foot with some eschar with improved granulation tissue to the base. There is no probe to bone bilateral. The adjacent skin is very hairless and atrophic Wound Measurements and Assessment WC - Nurse 1 - General Ulcer Measurement Start: 03/19/19 15:50 Freq: Status: Active Protocol: Activity Type Activity Date Activity User E-Sign Co-Sign Detail Recorded Client Recorded Date Recorded By Document 04/02/19 16:44 [id number] 04/02/19 16:47 04/02/19 16:44 Wound Center Nurse 1 [Ulcer Assessment] #5 LEFT LATERAL FOOT -Combined with other wound No -Current Size (cm) - Length 0.4 -Current Size (cm) - Width 0.4 -Current Size (cm) - Depth 0.8 -Total Square Cm 0.16 -Photo Taken No -Epithelialization None Present -Tunneling No -Undermining/Tunneling No -Circular Undermining No -Exudate Amt Medium -Exudate Type Yellow/Green -Wound Margin Flat & Intact -Granulation Amt None Present (0 %) -Slough/Fibrin Yes -Necrosis Amt Large (67-100%) -Necrotic Tissue Type Adherent Slough -Structure Exposed N/A -Texture (Fidelia-wound Skin Appearance) Assessed, Localized Edema -Moisture (Fidelia-wound Skin Appearance Assessed,Dry/ ) Scaly -Color (Fidelia-wound Skin Appearance) Assessed -Temperature (Fidelia-wound Skin No Abnormality Appearance) (Pt Warm) -Tenderness on Palpation (Fidelia-wound No Skin Appearance) -Ulcer Cleansing Rinsed/ Irrigated with Saline -Foul Odor after Cleansing No -Anesthetic Used 4% Lidocaine Solution #4 LEFT DORSAL FOOT -Combined with other wound No -Current Size (cm) - Length 0.6 -Current Size (cm) - Width 0.6 -Current Size (cm) - Depth 0.2 -Total Square Cm 0.36 -Photo Taken No -Epithelialization Small 1-33% -Tunneling No -Undermining/Tunneling No -Circular Undermining No -Exudate Amt Small -Exudate Type Serosanguineous -Wound Margin Flat & Intact -Granulation Amt Large (67-100%) -Granulation Quality Red -Slough/Fibrin Yes -Necrosis Amt Small (1-33%) -Necrotic Tissue Type Adherent Slough -Structure Exposed N/A -Texture (Fidelia-wound Skin Appearance) Assessed, Localized Edema -Moisture (Fidelia-wound Skin Appearance Assessed,Dry/ ) Scaly -Color (Fidelia-wound Skin Appearance) Assessed -Temperature (Fidelia-wound Skin No Abnormality Appearance) (Pt Warm) -Tenderness on Palpation (Fidelia-wound No Skin Appearance) -Ulcer Cleansing Rinsed/ Irrigated with Saline -Foul Odor after Cleansing No -Anesthetic Used 4% Lidocaine Solution #3 right foot -Combined with other wound No -Current Size (cm) - Length 4.7 -Current Size (cm) - Width 3 -Current Size (cm) - Depth 2.0 -Total Square Cm 14.1 -Photo Taken No -Epithelialization None Present -Tunneling No -Undermining/Tunneling No -Circular Undermining No -Exudate Amt Large -Exudate Type Serosanguineous -Wound Margin Flat & Intact -Granulation Amt Large (67-100%) -Granulation Quality Red -Slough/Fibrin Yes -Necrosis Amt Small (1-33%) -Necrotic Tissue Type Adherent Slough -Structure Exposed N/A -Texture (Fidelia-wound Skin Appearance) Assessed, Localized Edema -Moisture (Fidelia-wound Skin Appearance Assessed,Dry/ ) Scaly -Color (Fidelia-wound Skin Appearance) Assessed -Temperature (Fidelia-wound Skin No Abnormality Appearance) (Pt Warm) -Tenderness on Palpation (Fidelia-wound No Skin Appearance) -Ulcer Cleansing Rinsed/ Irrigated with Saline -Foul Odor after Cleansing No -Anesthetic Used 4% Lidocaine Solution [Edema Assessment] -Lower Limb Edema Present No WC - Nurse 2 - General Ulcer CM Notes Start: 03/19/19 15:50 Freq: Status: Active Protocol: Activity Type Activity Date Activity User E-Sign Co-Sign Detail Recorded Client Recorded Date Recorded By Document 04/02/19 16:57 AN [id number] 04/02/19 17:00 AN 04/02/19 16:57 Wound Center Nurse 2 [Procedure/Treatment] #5 LEFT LATERAL FOOT -Time 16:57 -Correct Patient Yes -Correct Side, Site, Position Yes -Correct Procedure Yes -Procedure Performed Yes -Type of Procedure Debridement -Clinical Debridement Subcutaneous -Post Debridement Size (cm) - Length 0.5 -Post Debridement Size (cm) - Width 0.5 -Post Debridement Size (cm) - Depth 0.8 -Total Square Cm 0.25 -Wound/Ulcer Outcome Not Healed #4 LEFT DORSAL FOOT -Time 16:57 -Correct Patient Yes -Correct Side, Site, Position Yes -Correct Procedure Yes -Procedure Performed Yes -Type of Procedure Debridement -Clinical Debridement Subcutaneous -Post Debridement Size (cm) - Length 0.7 -Post Debridement Size (cm) - Width 0.7 -Post Debridement Size (cm) - Depth 0.2 -Total Square Cm 0.49 -Wound/Ulcer Outcome Not Healed -Ulcer Cleansing Rinsed/ Irrigated with Saline #3 right foot -Time 16:58 -Correct Patient Yes -Correct Side, Site, Position Yes -Correct Procedure Yes -Procedure Performed Yes -Type of Procedure Debridement -Clinical Debridement Subcutaneous -Post Debridement Size (cm) - Length 4.8 -Post Debridement Size (cm) - Width 3.1 -Post Debridement Size (cm) - Depth 2.0 -Total Square Cm 14.88 -Wound/Ulcer Outcome Not Healed -Ulcer Cleansing Rinsed/ Irrigated with Saline -Foul Odor after Cleansing No -Bioengineered Tissue No [See Physician Procedure note for Specifics] Pain Scale: 0-10 Numeric [Pain] -Is Patient Pain Free? Yes Musculoskeletal: No Tenderness to Palpation of Joints or Extremities, Muscle Wasting, - - Compartment soft to palpate bilateral lower extremities Neurological: - - Lack of normal epicritic sensation light touch consistent with neuropathy bilateral Psych/Mental Status: Normal Affect, Appropriate, Anxious Debridement Note Post-Debridement Measurements/Treatment WC - Nurse 2 - General Ulcer CM Notes Start: 03/19/19 15:50 Freq: Status: Active Protocol: Activity Type Activity Date Activity User E-Sign Co-Sign Detail Recorded Client Recorded Date Recorded By Document 03/19/19 16:20 [id number] 03/19/19 16:22 Document 03/26/19 17:38 AN [id number] 03/26/19 17:45 AN Document 04/02/19 16:57 AN [id number] 04/02/19 17:00 AN 03/19/19 03/26/19 04/02/19 16:20 17:38 16:57 Wound Center Nurse 2 #5 LEFT LATERAL FOOT -Time 16:20 17:38 16:57 -Correct Patient Yes Yes Yes -Correct Side, Site, Position Yes Yes Yes -Correct Procedure Yes Yes Yes -Procedure Performed Yes Yes Yes -Type of Procedure Debridement Debridement Debridement -Clinical Debridement Subcutaneous Subcutaneous Subcutaneous -Post Debridement Size (cm) - Length 1.0 0.7 0.5 -Post Debridement Size (cm) - Width 0.8 0.4 0.5 -Post Debridement Size (cm) - Depth 1.0 0.2 0.8 -Total Square Cm 0.80 0.28 0.25 -Wound/Ulcer Outcome Not Healed Not Healed Not Healed -Ulcer Cleansing Rinsed/ Rinsed/ Irrigated with Irrigated with Saline Saline -Foul Odor after Cleansing No No -Bioengineered Tissue No No -Bleeding Controlled with Pressure Pressure -Offloading No Yes -Treatment Response Procedure Procedure Tolerated Well Tolerated Well #4 LEFT DORSAL FOOT -Time 16:21 17:38 16:57 -Correct Patient Yes Yes Yes -Correct Side, Site, Position Yes Yes Yes -Correct Procedure Yes Yes Yes -Procedure Performed Yes Yes Yes -Type of Procedure Debridement Debridement Debridement -Clinical Debridement Subcutaneous Subcutaneous Subcutaneous -Post Debridement Size (cm) - Length 1.2 1.1 0.7 -Post Debridement Size (cm) - Width 1.6 0.7 0.7 -Post Debridement Size (cm) - Depth 0.2 0.6 0.2 -Total Square Cm 1.92 0.77 0.49 -Wound/Ulcer Outcome Not Healed Not Healed Not Healed -Ulcer Cleansing Rinsed/ Rinsed/ Irrigated with Irrigated with Saline Saline -Foul Odor after Cleansing No -Bioengineered Tissue No -Bleeding Controlled with Pressure -Offloading No -Treatment Response Procedure Tolerated Well #3 right foot -Time 16:21 16:58 -Correct Patient Yes Yes -Correct Side, Site, Position Yes Yes -Correct Procedure Yes Yes -Procedure Performed Yes Yes -Type of Procedure Debridement Debridement -Clinical Debridement Subcutaneous Subcutaneous -Post Debridement Size (cm) - Length 3.1 4.8 -Post Debridement Size (cm) - Width 4.1 3.1 -Post Debridement Size (cm) - Depth 2.5 2.0 -Total Square Cm 12.71 14.88 -Wound/Ulcer Outcome Not Healed Not Healed -Ulcer Cleansing Rinsed/ Rinsed/ Irrigated with Irrigated with Saline Saline -Foul Odor after Cleansing No No -Bioengineered Tissue No No -Bleeding Controlled with Pressure -Offloading Yes -Type of Offloading Surgical Shoe -Treatment Response Procedure Tolerated Well Pain Scale: 0-10 Numeric Is Patient Pain Free? Yes Yes Yes Wound debrided: plantar foot Laterality: Right Wound Grade/Stage: grade 3 Type of Debridement: Excisional debridement Anesthesia Used: 5% Lidocaine Gel Depth: in the subcutaneous layer Percentage of wound debrided: 100 Instrument Used: #15 blade Tissue Removed: fibrous, devitalized subcutaneous, biofilm, slough Severity: Fat Layer Exposed Amount of bleeding with debridement: Mild Bleeding Controlled with: Pressure Patient tolerated procedure well - Additional Wound Wound debrided: left foot DOrsal Laterality: Left Wound Grade/Stage: grade 1 Type of Debridement: Excisional debridement Anesthesia Used: 5% Lidocaine Gel Depth: in the subcutaneous layer Percentage of wound debrided: 100 Instrument Used: #15 blade Tissue Removed: fibrous, devitalized subcutaneous, biofilm, slough Severity: Fat Layer Exposed Amount of bleeding with debridement: Mild Bleeding Controlled with: Pressure Patient tolerated procedure: Patient tolerated procedure well - Additional Wound Wound debrided: plantar forefoot lateral Laterality: Left Wound Grade/Stage: grade 1 Type of Debridement: Excisional debridement Anesthesia Used: 5% Lidocaine Gel Depth: in the subcutaneous layer Percentage of wound debrided: 100 Instrument Used: #15 blade Tissue Removed: fibrous, devitalized subcutaneous, biofilm, slough Severity: Fat Layer Exposed Amount of bleeding with debridement: Mild Bleeding Controlled with: Pressure Patient tolerated procedure: Patient tolerated procedure well Assessment/Plan Assessment: See current problems Plan: I reviewed and discussed her case today. The ulcer site was debrided and an excisional subcutaneous manner as noted in the clinical nursing panel. I recommend she changes the right foot dressing daily with a wicked packed saline wet-to-dry gauze to the plantar foot ulcer site and dry gauze to the surgical sites. I recommend she changes the left foot dressing daily with Aquacel Ag. These dressings were applied today and she was educated on proper application. Medical records from [facility] were reviewed. It is noted the vascular studies were included and this will be requested again. Updated noninvasive vascular studies were ordered today to proceed forward with her treatment plan timely manner. I do recommend she update to the foot x-ray and an order was previously provided. It is noted that she did not have this done and I encouraged her to do so. I reassured her no local or systemic signs of infection are noted. To complete antibiotic course as advised by her surgeon and infectious disease physician. She was she was advised to follow-up with infectious disease specialist and podiatric surgeon as advised and scheduled this upcoming week. I recommended improved diabetic management and offered her nutrition referral. She is amendable at this time and referral was provided for staff radiographer. Recommended nutritional supplementation to optimize healing. To keep pressure off of the ulcer site by heel weightbearing in a surgical shoe on the left foot; an order was previously provided with an offloading heel density Plastizote liner. She admits she did not obtain this because she cannot use this. She reports she cannot get her heel flat and the surgical shoe is uncomfortable and not supportive. Therefore an updated order for a cam walker with offloading liners was provided previously and she was advised to obtain some foot and ankle center for the left lower extremity. To continue with complete nonweightbearing status to the right lower extremity protect her surgical site. To use assistive device. . The right foot condition appears to be consistent with a previous grade 3 ulcer treated successfully medically and surgically. Clearance fragments demonstrate lack of current osteomyelitis. Hyperbaric oxygen therapy is also a treatment option due to the remaining grade 3 infected myositis that appears to be clinically improving. However, she is struggling even arrive during clinic hours or her clinical assessment and transportation and compliance are needed on a daily basis to complete hyperbaric oxygen therapy course. She was advised to stop smoking because this can also impede healing. We discussed the etiology and anticipated healing and management of this ulcer from a wound care standpoint as well as medical standpoint. She understands she is at continued risk for further limb loss and systemic illness. I also offered her a behavioral counseling consultation due to her self-reported anxiety, depression, and anorexia. I recommend she follow-up at the wound healing center 1 week or call sooner if she has any questions or concerns. I answered all of her questions today.
== END 2019-04-03 23:59 ==
LOC: WC 16:15
PROVIDERS: Family Provider Family Medicine; PCP Family Medicine; Visit Provider Podiatrist
DX: E11.621 Type 2 diabetes mellitus with foot ulcer (principal); E11.42 Type 2 diabetes mellitus with diabetic polyneuropathy; E11.51 Type 2 diabetes mellitus with diabetic peripheral angiopathy without gangrene; L97.522 Non-pressure chronic ulcer of other part of left foot with fat layer exposed; Z86.14 Personal history of Methicillin resistant Staphylococcus aureus infection; L97.512 Non-pressure chronic ulcer of other part of right foot with fat layer exposed
CPT/HCPCS: 11042; 11045; 99213; G0463

== ENCOUNTER → 2019-04-16 15:24 | Outpatient (CLI) | payer OTHER, MEDICARE, SELFPAY ==
[2019-04-09 16:44] VITALS: BMI 27.4
--- NOTE | 2019-04-16 15:31 | RAD_ITS ---
STUDY: X-RAY - RIGHT FOOT CLINICAL: Female, 48 years old. Ulcer. TECHNIQUE: 3 view(s) of the foot. COMPARISON: None. FINDINGS: There is a plantar calcaneal spur and enthesophyte at the Achilles tendon insertion site. Otherwise normal talus, calcaneus, and tarsal bones. There is mild degenerative arthritis involving the tarsal joints. The patient is status post amputation from the level of the distal aspect of the tarsal bones with visualization of the cuneiform bones and nonvisualized metatarsals. There is soft tissue swelling along the distal aspect of the stump, nonspecific. Vascular calcifications noted consistent with peripheral arterial disease. There is an area of lucency along the anterior inferior aspect of the stump. No distinct fracture or bony lesion seen. RAD/Foot min 3 Views IMPRESSION: Status post amputation as described above with swelling and mild irregularity along the distal aspect of the stump which may indicate nonspecific inflammatory process. Subtle lucency noted anteriorly and a fairly may indicate ulceration site. No distinct bony lesion. Electronically Signed: Danisha Lira MD at 1:47 EST , Service support ,
--- NOTE | 2019-04-16 15:35 | RAD_ITS ---
STUDY: X-RAY - LEFT FOOT CLINICAL: Female, 48 years old. Ulcer of the left foot. TECHNIQUE: 3 view(s) of the foot. COMPARISON: 02/19/2018. FINDINGS: There is enthesophyte at the Achilles tendon insertion site, otherwise normal talus, calcaneus, and tarsal bones. There is mild multilevel degenerative arthrosis of the visualized subtalar, talonavicular, calcaneocuboid, tarsal and tarsometatarsal articulations. There is deformity of the fifth metatarsal shaft with the fragmentation noted distally. While margins appear well-corticated, an infectious process or postoperative changes depending on history not excluded. Remainder of the metatarsal bones are normal. Normal metatarsophalangeal joint of the great toe. Normal tibial and fibular sesamoid bones. Normal interphalangeal joint of the great toe. Normal phalanges of the great toe. Normal second through fifth metatarsophalangeal joints. Mild narrowing of the interphalangeal joints otherwise normal phalanges of the lesser toes. The soft tissue structures are unremarkable. There is no demonstrated fracture. RAD/Foot min 3 Views IMPRESSION: Deformity involving the fifth metatarsal shaft which may indicate sequela of infectious process or surgery, exact age indeterminate, clinical correlation recommended. These findings are new in the interval. If there is clinical concern for infectious process, recommend dedicated MRI or bone scan of the region of interest. Underlying degenerative disease. Electronically Signed: Danisha Lira MD at 1:50 EST , Service support ,
== END ==
PROVIDERS: Family Provider Family Medicine; PCP Family Medicine; Referring Provider Podiatrist; Visit Provider Podiatrist
DX: L97.512 Non-pressure chronic ulcer of other part of right foot with fat layer exposed (principal); L97.522 Non-pressure chronic ulcer of other part of left foot with fat layer exposed; Z89.431 Acquired absence of right foot
CPT/HCPCS: 73630

== ENCOUNTER 2019-04-25 15:30 | Outpatient (RCR) | payer OTHER, MEDICARE, SELFPAY ==
[2019-04-04 01:29] VITALS: BP 147/88; PULSE 94; RESP 18; TEMP 37
[2019-04-09 16:44] VITALS: BMI 27.4
--- NOTE | 2019-04-09 17:05 | PCM.WC.PN ---
(1) Ulcer of right foot with necrosis of muscle Status: Acute Code(s): L97.513 - Non-pressure chronic ulcer of other part of right foot with necrosis of muscle (2) Type 2 diabetes mellitus with diabetic polyneuropathy Status: Chronic Code(s): E11.42 - Type 2 diabetes mellitus with diabetic polyneuropathy (3) Chronic ulcer of left foot with fat layer exposed Status: Chronic Code(s): L97.522 - Non-pressure chronic ulcer of other part of left foot with fat layer exposed (4) Malnutrition Status: Chronic Code(s): E46 - Unspecified protein-calorie malnutrition (5) Delayed wound healing Status: Chronic Code(s): T14.8XXD - Other injury of unspecified body region, subsequent encounter (6) Peripheral vascular disease Status: Suspected Code(s): I73.9 - Peripheral vascular disease, unspecified (7) Claudication Status: Chronic Code(s): I73.9 - Peripheral vascular disease, unspecified (8) Amputation of right foot Status: Acute Code(s): S98.911A - Complete traumatic amputation of right foot, level unspecified, initial encounter (9) Malnutrition Status: Chronic Code(s): E46 - Unspecified protein-calorie malnutrition Type of Wound Date of Service: 04/09/19 Chief Complaint: Left foot ulcer. Right foot ulcer and recent amputation and tendon lengthening History of Wound: This pleasant and anxious 48-year-old female with multiple comorbidities was seen today for new conditions. She had a right lower extremity Lisfranc disarticulation amputation, tendo Achilles lengthening, and wound VAC application performed at an outside facility on February 28, 2019 with ointment mill tender Azalia Omer for a gas gangrene infection. She also had left lower extremity ulcer excision with application of advanced wound healing product, ACell matrix. Her clearance fragments from her right foot were negative for osteomyelitis. Her medical records from [facility] were reviewed in detail and it is noted she is also seen by an infectious disease specialist who had her on IV vancomycin and meropenem. She was then discharged and oral Levaquin was recommended. It is also noted a below the knee amputation was recommended initially. She had postoperative Dakin's applied. Her previous microbiology reports demonstrated E faealis, E. coli, Proteus mirabilis, staph epidermidis, and morganii growth. Her last hemoglobin A1c was 8.6% and her albumin on record was 1.9. Her previous postoperative x-ray reports demonstrating adequate amputation and her preoperative MRI report was also reviewed consistent with osteomyelitis and a necrotizing fasciitis. She has continued drainage and wound and was referred here by her surgeon. Sutures are still intact and she has some black tissue progression at the stump site. She is scheduled to follow-up this upcoming Sunday with her surgeon. She is with her and friend today he reports she does need to follow-up with her infectious disease physician. She has been nonweightbearing to the right limb and places weight on the toes of her left foot without any protective shoe gear. I do not see the results of her previous vascular studies and these will be requested again from [facility]. She was therefore referred to vascular surgery her locally. She thought about the previously recommended nutrition referral and is amendable to proceed; she is scheduled for 04/22/19. She refuses to have the left foot debrided today and she did not get her recommended foot x-ray. She is very argumentative with her spouse throughout the visit today. Progress of Wound: Stable bilateral - Physical Exam Vital Signs Temp Pulse Resp BP 98.6 F 94 18 147/88 H 04/04/19 01:29 04/04/19 01:29 04/04/19 01:29 04/04/19 01:29 General: Alert, Oriented x3, Cooperative, No apparent distress HEENT: Atraumatic Extremities: No cyanosis, Capillary Refill Less than 3 Seconds, No Calf Tenderness - Negative Xavier and Elliott sign bilateral, Diminished Peripheral Pulses, Edema - Mild bilateral, - - Right midfoot Lisfranc disarticulation. Dorsal contracture lesser toes with prominent metatarsal head left. Compartment soft bilateral lower extremity Skin: Ulcer/ Wound - No purulence, erythema, streaking, odor, acute infection today. The right foot is granular and is filling and plantarly. There is continued eschar that is pretty dry and the sutures remain intact from her previous surgery. The left foot has partially adhered eschar that is dry and she refuses debridement. No bogginess or fluctuance Wound Measurements and Assessment WC - Nurse 1 - General Ulcer Measurement Start: 04/09/19 16:44 Freq: Status: Active Protocol: Activity Type Activity Date Activity User E-Sign Co-Sign Detail Recorded Client Recorded Date Recorded By Document 04/09/19 16:44 [facility] [id number] 04/09/19 16:47 [facility] 04/09/19 16:44 Wound Center Nurse 1 [Ulcer Assessment] #5 LEFT LATERAL FOOT -Combined with other wound No -Current Size (cm) - Length 0.1 -Current Size (cm) - Width 0.1 -Current Size (cm) - Depth 0.1 -Total Square Cm 0.01 -Epithelialization Large 67-100% -Tunneling No -Undermining/Tunneling No -Circular Undermining No #4 LEFT DORSAL FOOT -Combined with other wound No -Current Size (cm) - Length 0.1 -Current Size (cm) - Width 0.1 -Current Size (cm) - Depth 0.1 -Total Square Cm 0.01 -Photo Taken No -Epithelialization Large 67-100% -Tunneling No -Undermining/Tunneling No -Circular Undermining No #3 right foot -Combined with other wound No -Current Size (cm) - Length 4 -Current Size (cm) - Width 2.7 -Current Size (cm) - Depth 1.4 -Total Square Cm 10.8 -Photo Taken No -Epithelialization None Present -Tunneling No -Undermining/Tunneling Yes -Undermining/Tunneling Starts (O' 7 clock) -Undermining/Tunneling Ends (O'clock) 10 -Maximum Distance (cm) 3.5 -Circular Undermining No -Exudate Amt Small -Exudate Type Serosanguineous -Wound Margin Distinct, Outline Attached -Granulation Amt Small (1-33%) -Granulation Quality [place] -Slough/Fibrin Yes -Necrosis Amt Medium (34-66%) -Necrotic Tissue Type Adherent Slough -Texture (Fidelia-wound Skin Appearance) Assessed,Callus ,Scarring -Moisture (Fidelia-wound Skin Appearance Assessed,Dry/ ) Scaly -Color (Fidelia-wound Skin Appearance) Assessed, Erythema -Temperature (Fidelia-wound Skin No Abnormality Appearance) (Pt Warm) -Tenderness on Palpation (Fidelia-wound No Skin Appearance) -Ulcer Cleansing Rinsed/ Irrigated with Saline -Foul Odor after Cleansing No -Anesthetic Used 4% Lidocaine Solution WC - Nurse 2 - General Ulcer CM Notes Start: 04/09/19 16:44 Freq: Status: Active Protocol: Activity Type Activity Date Activity User E-Sign Co-Sign Detail Recorded Client Recorded Date Recorded By Document 04/09/19 16:54 [id number] [id number] 04/09/19 16:56 04/09/19 16:54 Wound Center Nurse 2 [Procedure/Treatment] #5 LEFT LATERAL FOOT -Correct Patient No -Correct Side, Site, Position No -Correct Procedure No -Procedure Performed No #4 LEFT DORSAL FOOT -Correct Patient No -Correct Side, Site, Position No -Correct Procedure No -Procedure Performed No #3 right foot -Time 16:55 -Correct Patient Yes -Correct Side, Site, Position Yes -Correct Procedure Yes -Procedure Performed Yes -Type of Procedure Debridement -Clinical Debridement Subcutaneous -Post Debridement Size (cm) - Length 4 -Post Debridement Size (cm) - Width 2.8 -Post Debridement Size (cm) - Depth 1.5 -Total Square Cm 11.2 -Wound/Ulcer Outcome Not Healed -Ulcer Cleansing Rinsed/ Irrigated with Saline -Foul Odor after Cleansing No -Bioengineered Tissue No -Bleeding Controlled with Pressure -Offloading No -Treatment Response Procedure Tolerated Well [See Physician Procedure note for Specifics] Pain Scale: 0-10 Numeric [Pain] -Is Patient Pain Free? Yes Musculoskeletal: No Tenderness to Palpation of Joints or Extremities, Muscle Wasting Neurological: - - Lack of epicritic sensation light touch consistent with neuropathy status bilateral Psych/Mental Status: Normal Affect, Appropriate, Agitated, Anxious Debridement Note Post-Debridement Measurements/Treatment WC - Nurse 2 - General Ulcer CM Notes Start: 04/09/19 16:44 Freq: Status: Active Protocol: Activity Type Activity Date Activity User E-Sign Co-Sign Detail Recorded Client Recorded Date Recorded By Document 04/09/19 16:54 [id number] 04/09/19 16:56 04/09/19 16:54 Wound Center Nurse 2 #5 LEFT LATERAL FOOT -Correct Patient No -Correct Side, Site, Position No -Correct Procedure No -Procedure Performed No #4 LEFT DORSAL FOOT -Correct Patient No -Correct Side, Site, Position No -Correct Procedure No -Procedure Performed No #3 right foot -Time 16:55 -Correct Patient Yes -Correct Side, Site, Position Yes -Correct Procedure Yes -Procedure Performed Yes -Type of Procedure Debridement -Clinical Debridement Subcutaneous -Post Debridement Size (cm) - Length 4 -Post Debridement Size (cm) - Width 2.8 -Post Debridement Size (cm) - Depth 1.5 -Total Square Cm 11.2 -Wound/Ulcer Outcome Not Healed -Ulcer Cleansing Rinsed/ Irrigated with Saline -Foul Odor after Cleansing No -Bioengineered Tissue No -Bleeding Controlled with Pressure -Offloading No -Treatment Response Procedure Tolerated Well Pain Scale: 0-10 Numeric Is Patient Pain Free? Yes Wound debrided: plantar foot Laterality: Right Wound Grade/Stage: grade 3 Type of Debridement: Excisional debridement Anesthesia Used: 5% Lidocaine Gel Depth: in the subcutaneous layer Percentage of wound debrided: 100 Instrument Used: #15 blade Tissue Removed: fibrous, devitalized subcutaneous, biofilm, slough Severity: Fat Layer Exposed Amount of bleeding with debridement: Mild Bleeding Controlled with: Pressure Patient tolerated procedure well Assessment/Plan Assessment: See current problems Plan: I reviewed and discussed her case today. The ulcer site was debrided and an excisional subcutaneous manner as noted in the clinical nursing panel to the right foot only. As noted she refused this procedure on the left foot today. I recommend she changes the right foot dressing daily with a wicked packed saline wet-to-dry gauze to the plantar foot ulcer site and dry gauze to the surgical sites. I recommend she changes the left foot dressing daily with Aquacel Ag. These dressings were applied today and she was educated on proper application. Medical records from [facility] were reviewed. It is noted the vascular studies were not included and this will be requested again. Updated noninvasive vascular studies were ordered anyways from [place] to proceed forward with her treatment plan timely manner. I do recommend she update to the foot x-ray and an order was previously provided. It is noted that she did not have this done and I encouraged her to do so. I reassured her no local or systemic signs of infection are noted. To complete antibiotic course as advised by her surgeon and infectious disease physician. She was she was advised to follow-up with infectious disease specialist and podiatric surgeon as advised and scheduled this upcoming Sunday. I recommended improved diabetic management and offered her nutrition referral. She is amendable at this time and referral was provided for general manager. Recommended nutritional supplementation to optimize healing. She has an appointment scheduled for the . To keep pressure off of the ulcer site by heel weightbearing in a surgical shoe on the left foot; an order was previously provided with an offloading heel density Plastizote liner. She admits she did not obtain this because she cannot use this. She reports she cannot get her heel flat and the surgical shoe is uncomfortable and not supportive. Therefore an updated order for a cam walker with offloading liners was provided previously and she was advised to obtain some foot and ankle center for the left lower extremity. To continue with complete nonweightbearing status to the right lower extremity protect her surgical site. To use assistive device. . The right foot condition appears to be consistent with a previous grade 3 ulcer treated successfully medically and surgically. Clearance fragments demonstrate lack of current osteomyelitis. Hyperbaric oxygen therapy is also a treatment option due to the remaining grade 3 infected myositis that appears to be clinically improving. However, she is struggling even arrive during clinic hours or her clinical assessment and transportation and compliance are needed on a daily basis to complete hyperbaric oxygen therapy course. She is late again today and was asked to control arguments with spouse during the office visit so we can focus on her medical plan. She was advised to stop smoking because this can also impede healing. We discussed the etiology and anticipated healing and management of this ulcer from a wound care standpoint as well as medical standpoint. She understands she is at continued risk for further limb loss and systemic illness. I also offered her a behavioral counseling consultation due to her self-reported anxiety, depression, and anorexia. I recommend she follow-up at the wound healing center 1 week or call sooner if she has any questions or concerns. I answered all of her questions today.
[2019-04-16 16:40] VITALS: BP 137/79; PULSE 93; RESP 18; TEMP 37; BMI 27.4
--- NOTE | 2019-04-16 17:06 | PN.PCM_ITS ---
(1) Ulcer of right foot with necrosis of muscle Status: Acute Current Visit: Yes Code(s): L97.513 - Non-pressure chronic ulcer of other part of right foot with necrosis of muscle (2) Type 2 diabetes mellitus with diabetic polyneuropathy Status: Chronic Current Visit: Yes Code(s): E11.42 - Type 2 diabetes mellitus with diabetic polyneuropathy (3) Chronic ulcer of left foot with fat layer exposed Status: Chronic Current Visit: Yes Code(s): L97.522 - Non-pressure chronic ulcer of other part of left foot with fat layer exposed (4) Malnutrition Status: Chronic Current Visit: Yes Code(s): E46 - Unspecified protein- calorie malnutrition (5) Delayed wound healing Status: Chronic Current Visit: Yes Code(s): T14.8XXD - Other injury of unspecified body region, subsequent encounter (6) Peripheral vascular disease Status: Suspected Current Visit: Yes Code(s): I73.9 - Peripheral vascular disease, unspecified (7) Claudication Status: Chronic Current Visit: Yes Code(s): I73.9 - Peripheral vascular disease, unspecified (8) Amputation of right foot Status: Acute Current Visit: Yes Code(s): S98.911A - Complete traumatic amputation of right foot, level unspecified, initial encounter (9) Malnutrition Status: Chronic Current Visit: Yes Code(s): E46 - Unspecified protein- calorie malnutrition (10) Osteomyelitis Status: Resolved Current Visit: Yes Code(s): M86.9 - Osteomyelitis, unspecified Type of Wound Date of Service: 04/16/19 Chief Complaint: Left foot ulcer. Right foot ulcer and recent amputation and tendon lengthening History of Wound: This pleasant and anxious 48-year-old female with multiple comorbidities was seen today for right surgical foot with remaining ulcer and left foot ulcers with remaining ulcer and left foot ulcers well. She had a right lower extremity Lisfranc disarticulation amputation, tendo Achilles lengthening, and wound VAC application performed at an outside facility on February 28, 2019 with raveler Azalia Omer for a gas gangrene infection. She also had left lower extremity ulcer excision with application of advanced wound healing product, ACell matrix. Her clearance fragments from her right foot were negative for osteomyelitis. Her medical records from [facility] were reviewed in detail and it is noted she is also seen by an infectious disease specialist who had her on IV vancomycin and meropenem. She was then discharged and oral Levaquin was recommended. It is also noted a below the knee amputation was recommended initially. She had postoperative Dakin's applied. Her previous microbiology reports demonstrated E faealis, E. coli, Proteus mirabilis, staph epidermidis, and morganii growth. Her last hemoglobin A1c was 8.6% and her albumin on record was 1.9. Her previous postoperative x-ray reports demonstrating adequate amputation and her preoperative MRI report was also reviewed consistent with osteomyelitis and a necrotizing fasciitis. She did get her updated foot x-rays as advised earlier today. The sutures on the right foot have been removed by her surgeon earlier this week. She has been nonweightbearing to the right limb and places weight on the toes of her left foot without any protective shoe gear. She was referred to vascular surgery her locally. She is scheduled for 04/22/19 to see nutrition services as recommended. Progress of Wound: Improving bilateral - Physical Exam Vital Signs Temp Pulse Resp BP 98.6 F 93 18 137/79 H 04/16/19 16:40 04/16/19 16:40 04/16/19 16:40 04/16/19 16:40 General: Alert, Oriented x3, Cooperative, No apparent distress HEENT: Atraumatic Extremities: No cyanosis, Capillary Refill Less than 3 Seconds, No Calf Tenderness - Negative Xavier and Elliott to bilateral, Diminished Peripheral Pulses, Edema - Mild bilateral, - - Right midfoot amputation. Left prominent fifth metatarsal head with dorsal contraction of lesser toes Skin: Ulcer/ Wound - No purulence, erythema, string, odor, infection bilateral. There is no probe to bone or exposed muscle tissue on the right foot today and the ulcer bed is granular and pale. Upon debridement of distal plantar eschar there is healthy tissue underneath her. It is noted the sutures have been removed and there is a minor area of dehiscence to the lateral aspect only. The left foot does have a continued ulcer to the dorsal and lateral aspect of the fifth metatarsal head region which does still probe deep however there is progressive peripheral epithelization and this does look healthier after debridement performed. The peripheral skin is hairless and atrophic bilateral l ower extremities. The open gastrocnemius recession site on the right lower extremity incision is healed today as well with sutures removed Wound Measurements and Assessment WC - Nurse 1 - General Ulcer Measurement Start: 04/09/19 16:44 Freq: Status: Active Protocol: Activity Type Activity Date Activity User E-Sign Co-Sign Detail Recorded Client Recorded Date Recorded By Document 04/16/19 16:40 RB [id number] 04/16/19 16:48 RB 04/16/19 16:40 Wound Center Nurse 1 [Ulcer Assessment] #5 LEFT LATERAL FOOT -Combined with other wound No -Current Size (cm) - Length 1 -Current Size (cm) - Width 1 -Current Size (cm) - Depth 0.1 -Total Square Cm 1 -Tunneling No -Undermining/Tunneling No -Circular Undermining No -Exudate Amt Small -Exudate Type Serosanguineous -Wound Margin Flat & Intact -Granulation Amt Medium (34-66%) -Granulation Quality [place] -Slough/Fibrin Yes -Necrosis Amt Small (1-33%) -Necrotic Tissue Type Adherent Slough -Structure Exposed N/A -Texture (Fidelia-wound Skin Appearance) Assessed -Moisture (Fidelia-wound Skin Appearance Assessed ) -Color (Fidelia-wound Skin Appearance) Assessed -Temperature (Fidelia-wound Skin No Abnormality Appearance) (Pt Warm) -Tenderness on Palpation (Fidelia-wound No Skin Appearance) -Ulcer Cleansing Wound Cleanser -Foul Odor after Cleansing No -Anesthetic Used 4% Lidocaine Solution #4 LEFT DORSAL FOOT -Combined with other wound No -Current Size (cm) - Length 0.5 -Current Size (cm) - Width 0.5 -Current Size (cm) - Depth 0.2 -Total Square Cm 0.25 -Tunneling No -Undermining/Tunneling No -Circular Undermining No -Exudate Amt Small -Exudate Type Serosanguineous -Wound Margin Flat & Intact -Granulation Amt Large (67-100%) -Granulation Quality [place] -Slough/Fibrin Yes -Necrosis Amt Small (1-33%) -Necrotic Tissue Type Adherent Slough -Structure Exposed N/A -Texture (Fidelia-wound Skin Appearance) Callus -Moisture (Fidelia-wound Skin Appearance Assessed ) -Color (Fidelia-wound Skin Appearance) Assessed -Temperature (Fidelia-wound Skin No Abnormality Appearance) (Pt Warm) -Tenderness on Palpation (Fidelia-wound No Skin Appearance) -Ulcer Cleansing Wound Cleanser -Foul Odor after Cleansing No -Anesthetic Used 4% Lidocaine Solution #3 right foot -Combined with other wound No -Current Size (cm) - Length 4.5 -Current Size (cm) - Width 3 -Current Size (cm) - Depth 2.2 -Total Square Cm 13.5 -Undermining/Tunneling Yes -Undermining/Tunneling Starts (O' 9 clock) -Undermining/Tunneling Ends (O'clock) 9 -Maximum Distance (cm) 5 -Circular Undermining Yes -Exudate Amt Large -Exudate Type Serosanguineous -Wound Margin Thickened & Rolled Under -Granulation Amt Medium (34-66%) -Granulation Quality [place] -Slough/Fibrin Yes -Necrosis Amt Medium (34-66%) -Necrotic Tissue Type Adherent Slough -Structure Exposed N/A -Texture (Fidelia-wound Skin Appearance) Assessed, Localized Edema -Moisture (Fidelia-wound Skin Appearance Assessed ) -Color (Fidelia-wound Skin Appearance) Assessed -Temperature (Fidelia-wound Skin No Abnormality Appearance) (Pt Warm) -Tenderness on Palpation (Fidelia-wound No Skin Appearance) -Ulcer Cleansing Wound Cleanser -Foul Odor after Cleansing No -Anesthetic Used 4% Lidocaine Solution WC - Nurse 2 - General Ulcer CM Notes Start: 04/09/19 16:44 Freq: Status: Active Protocol: Activity Type Activity Date Activity User E-Sign Co-Sign Detail Recorded Client Recorded Date Recorded By Document 04/16/19 16:52 DAVID [id number] 04/16/19 17:03 DAVID 04/16/19 16:52 Wound Center Nurse 2 [Procedure/Treatment] #5 LEFT LATERAL FOOT -Time 17:00 -Correct Patient Yes -Correct Side, Site, Position Yes -Correct Procedure Yes -Procedure Performed Yes -Type of Procedure Debridement -Clinical Debridement Subcutaneous -Post Debridement Size (cm) - Length 1.1 -Post Debridement Size (cm) - Width 0.4 -Post Debridement Size (cm) - Depth 0.2 -Total Square Cm 0.44 -Wound/Ulcer Outcome Not Healed -Ulcer Cleansing Rinsed/ Irrigated with Saline -Foul Odor after Cleansing No -Bioengineered Tissue No -Bleeding Controlled with Pressure -Offloading No -Treatment Response Procedure Tolerated Well #4 LEFT DORSAL FOOT -Time 17:01 -Correct Patient No -Correct Side, Site, Position No -Correct Procedure No -Procedure Performed No -Wound/Ulcer Outcome Not Healed #3 right foot -Time 16:53 -Correct Patient Yes -Correct Side, Site, Position Yes -Correct Procedure Yes -Procedure Performed Yes -Type of Procedure Debridement -Clinical Debridement Subcutaneous -Post Debridement Size (cm) - Length 4.5 -Post Debridement Size (cm) - Width 3.1 -Post Debridement Size (cm) - Depth 2.3 -Total Square Cm 13.95 -Wound/Ulcer Outcome Not Healed -Ulcer Cleansing Rinsed/ Irrigated with Saline -Foul Odor after Cleansing No -Bioengineered Tissue No -Bleeding Controlled with Pressure -Offloading No -Treatment Response Procedure Tolerated Well [See Physician Procedure note for Specifics] Pain Scale: 0-10 Numeric [Pain] -Is Patient Pain Free? Yes Musculoskeletal: No Tenderness to Palpation of Joints or Extremities, Muscle Wasting, - - Compartment soft to palpate bilateral lower tremors Neurological: - - Lack of epicritic sensation light touch consistent with neuropathy status bilateral lower extremities Psych/Mental Status: Normal Affect, Appropriate Debridement Note Post-Debridement Measurements/Treatment WC - Nurse 2 - General Ulcer CM Notes Start: 04/09/19 16:44 Freq: Status: Active Protocol: Activity Type Activity Date Activity User E-Sign Co-Sign Detail Recorded Client Recorded Date Recorded By Document 04/09/19 16:54 [id number] 04/09/19 16:56 Document 04/16/19 16:52 [id number] 04/16/19 17:03 04/09/19 04/16/19 16:54 16:52 Wound Center Nurse 2 #5 LEFT LATERAL FOOT -Time 17:00 -Correct Patient No Yes -Correct Side, Site, Position No Yes -Correct Procedure No Yes -Procedure Performed No Yes -Type of Procedure Debridement -Clinical Debridement Subcutaneous -Post Debridement Size (cm) - Length 1.1 -Post Debridement Size (cm) - Width 0.4 -Post Debridement Size (cm) - Depth 0.2 -Total Square Cm 0.44 -Wound/Ulcer Outcome Not Healed -Ulcer Cleansing Rinsed/ Irrigated with Saline -Foul Odor after Cleansing No -Bioengineered Tissue No -Bleeding Controlled with Pressure -Offloading No -Treatment Response Procedure Tolerated Well #4 LEFT DORSAL FOOT -Time 17:01 -Correct Patient No No -Correct Side, Site, Position No No -Correct Procedure No No -Procedure Performed No No -Wound/Ulcer Outcome Not Healed #3 right foot -Time 16:55 16:53 -Correct Patient Yes Yes -Correct Side, Site, Position Yes Yes -Correct Procedure Yes Yes -Procedure Performed Yes Yes -Type of Procedure Debridement Debridement -Clinical Debridement Subcutaneous Subcutaneous -Post Debridement Size (cm) - Length 4 4.5 -Post Debridement Size (cm) - Width 2.8 3.1 -Post Debridement Size (cm) - Depth 1.5 2.3 -Total Square Cm 11.2 13.95 -Wound/Ulcer Outcome Not Healed Not Healed -Ulcer Cleansing Rinsed/ Rinsed/ Irrigated with Irrigated with Saline Saline -Foul Odor after Cleansing No No -Bioengineered Tissue No No -Bleeding Controlled with Pressure Pressure -Offloading No No -Treatment Response Procedure Procedure Tolerated Well Tolerated Well Pain Scale: 0-10 Numeric Is Patient Pain Free? Yes Yes Wound debrided: lateral foot Laterality: Left Wound Grade/Stage: grade 3 Type of Debridement: Excisional debridement Anesthesia Used: 5% Lidocaine Gel Depth: in the subcutaneous layer Percentage of wound debrided: 100 Instrument Used: #15 blade Tissue Removed: fibrous, devitalized subcutaneous, biofilm, slough Severity: Fat Layer Exposed Amount of bleeding with debridement: Mild Bleeding Controlled with: Pressure Patient tolerated procedure well - Additional Wound Wound debrided: plantar foot Laterality: Left Wound Grade/Stage: grade 3 Type of Debridement: Excisional debridement Anesthesia Used: 5% Lidocaine Gel Depth: in the subcutaneous layer Percentage of wound debrided: 100 Instrument Used: #15 blade Tissue Removed: fibrous, devitalized subcutaneous, biofilm, slough Severity: Fat Layer Exposed Amount of bleeding with debridement: Mild Bleeding Controlled with: Pressure Patient tolerated procedure: Patient tolerated procedure well Assessment/Plan Active Problems Type 2 diabetes mellitus with diabetic polyneuropathy (Chronic) Chronic ulcer of left foot with fat layer exposed (Chronic) Malnutrition (Chronic) Delayed wound healing (Chronic) Claudication (Chronic) Amputation of right foot (Acute) Malnutrition (Chronic) Ulcer of right foot with necrosis of muscle (Acute) Assessment: See current problems Plan: I reviewed and discussed her case today. The ulcer site was debrided and an excisional subcutaneous manner as noted in the clinical nursing panel to the right and left foot today. I recommend she changes the right foot dressing daily with a wound VAC at this time; this was ordered for continuous 150 mmHg. I recommend she changes the left foot dressing daily with Tink Ag. These dressings were applied today to the left and approval and application with a wound VAC on the right is pending. It is okay to apply Aquasol on the right foot until the wound VAC is applied. Medical records from [facility] were reviewed. It is noted the vascular studies were not included and this will be requested again. Updated noninvasive vascular studies were ordered anyways from [place] to proceed forward with her treatment plan timely manner. I do recom mend she update to the foot x-ray and an order was previously provided. These were reviewed. Right foot Lisfranc disarticulation status is noted without any osseous proliferation, soft tissue emphysema, foreign body, or acute fracture dislocation noted. The left foot x-rays were reviewed without any soft tissue emphysema or foreign body. There is osseous destruction to the fifth metatarsal head region consistent with prior infection or even surgical resection. No acute injuries are noted. I reassured her no local or systemic signs of infection are noted. To complete antibiotic course as advised by her surgeon and infectious disease physician. Recent suture removal as noted by surgeon. She was she was advised to follow-up with infectious disease specialist and podiatric surgeon as advised and scheduled this upcoming Sunday. I recommended improved diabetic management and offered her nutrition referral. She is amendable at this time and referral was provided for midlevel provider. Recommended nutritional supplementation to optimize healing. She has an appointment scheduled for the . To keep pressure off of the ulcer site by heel weightbearing in a surgical shoe on the left foot; an order was previously provided with an offloading heel density Plastizote liner. She admits she did not obtain this because she cannot use this. She reports she cannot get her heel flat and the surgical shoe is uncomfortable and not supportive. Therefore an updated order for a cam walker with offloading liners was provided previously and she was advised to obtain some foot and ankle center for the left lower extremity. To continue with complete nonweightbearing status to the right lower extremity protect her surgical site. To use assistive device. . The right foot condition appears to be consistent with a previous grade 3 ulcer treated successfully medically and surgically. Clearance fragments demonstrate lack of current osteomyelitis. Hyperbaric oxygen therapy is also a treatment option due to the remaining grade 3 infected myositis that appears to be clinically improving. However, she is struggling even arrive during clinic hours or her clinical assessment and transportation and compliance are needed on a daily basis to complete hyperbaric oxygen therapy course. She was advised to stop smoking because this can also impede healing. We discussed the etiology and anticipated healing and management of this ulcer from a wound care standpoint as well as medical standpoint. She understands she is at continued risk for further limb loss and systemic illness. I also offered her a behavioral counseling consultation due to her self-reported anxiety, depression, and anorexia. I recommend she follow-up at the wound healing center 1 week or call sooner if she has any questions or concerns. I answered all of her questions today.
[2019-04-23 16:50] VITALS: BMI 27.4
[2019-04-23 16:56] LABS: Absolute Lymphocyte Count 1.82 X10^3/uL (0.83-4.51); Absolute Neutrophil Count 6.8 X10^3/uL (2.0-7.7); Basophil# 0.02 X10^3/uL; Basophil% 0.2 % (0-1); Eosinophil# 0.06 X10^3/uL; Eosinophils% 0.6 % (0-5); Hematocrit 35.9 % (37-47); Hemoglobin 11.7 g/dL (12.0-15.0); Lymphocyte # 1.82 X10^3/ul (4.0); Mean Corp Hgb Conc 32.6 g/dL (32-36); Mean Corpuscular Hgb 27.3 pg (27.0-32.0); Mean Corpuscular Volume 83.7 fL (81-99); Mean Platelet Vol. 9.1 fl (6.2-12.0); Monocyte% 8.3 % (0-10); NRBC Flagged by Analyzer 0 % (0-5); Neutrophil # 6.76 X10^3/uL (2.7-7.7); Neutrophil % 70.4 % (47-70); Platelet Count 338 K/mm3 (150-450); RBC Distribution Width CV 15.3 % (11.6-14.6); RBC Distribution Width SD 46.2 fl (35.1-43.9); Red Blood Count 4.29 M/mm3 (4.2-5.4); White Blood Count 9.6 K/mm3 (4.4-11.0)
[2019-04-23 17:09] LABS: Erythrocyte Sedimentation Rate 74 mm/hr (0-20)
[2019-04-23 17:20] LABS: ALB/GLOB Ratio 0.7 RATIO (0.9-2.4); AST(SGOT) 10 U/L (15-37); Alanine Aminotransfer ALT/SGPT 12 U/L (13-56); Alkaline Phosphatase 113 U/L (45-117); Anion Gap 9 (5-15); BUN 15 mg/dL (7-18); BUN/Creat Ratio 21.8 RATIO (10-20); Calcium,Total 8.6 mg/dL (8.5-10.1); Chloride 103 mmol/L (98-107); Creatinine, Serum 0.69 mg/dL (0.55-1.02); EST Glomerular Filtration Rate 97 mL/min (>60); Est Glom Filt Rate - Afr Amer 118 mL/min (>60); Estimated Creatinine Clearance 87.04 ml/min; Globulin 4.5 g/dL (2.2-4.2); Glucose 192 mg/dL (74-106); Potassium 3.6 mmol/L (3.5-5.1); Protein, Total 7.5 g/dL (6.4-8.2); Sodium Level 137 mmol/L (136-145)
--- NOTE | 2019-04-23 17:33 | PCM.WC.PN ---
(1) Ulcer of right foot with necrosis of muscle Status: Acute Current Visit: Yes Code(s): L97.513 - Non-pressure chronic ulcer of other part of right foot with necrosis of muscle (2) Type 2 diabetes mellitus with diabetic polyneuropathy Status: Chronic Current Visit: Yes Code(s): E11.42 - Type 2 diabetes mellitus with diabetic polyneuropathy (3) Chronic ulcer of left foot with fat layer exposed Status: Chronic Current Visit: Yes Code(s): L97.522 - Non-pressure chronic ulcer of other part of left foot with fat layer exposed (4) Malnutrition Status: Chronic Current Visit: Yes Code(s): E46 - Unspecified protein-calorie malnutrition (5) Delayed wound healing Status: Chronic Current Visit: Yes Code(s): T14.8XXD - Other injury of unspecified body region, subsequent encounter (6) Peripheral vascular disease Status: Suspected Current Visit: Yes Code(s): I73.9 - Peripheral vascular disease, unspecified (7) Claudication Status: Chronic Current Visit: Yes Code(s): I73.9 - Peripheral vascular disease, unspecified (8) Amputation of right foot Status: Acute Current Visit: Yes Code(s): S98.911A - Complete traumatic amputation of right foot, level unspecified, initial encounter (9) Malnutrition Status: Chronic Current Visit: Yes Code(s): E46 - Unspecified protein-calorie malnutrition (10) Osteomyelitis Status: Resolved Current Visit: Yes Code(s): M86.9 - Osteomyelitis, unspecified (11) Non-pressure chronic ulcer of other part of right foot with fat layer exposed Status: Chronic Current Visit: Yes Code(s): L97.512 - Non-pressure chronic ulcer of other part of right foot with fat layer exposed Type of Wound Date of Service: 04/23/19 Chief Complaint: Left foot ulcer. Right foot ulcer and recent amputation and tendon lengthening History of Wound: This pleasant and anxious 48-year-old female with multiple comorbidities was seen today for right surgical foot with remaining ulcer and left foot ulcers with remaining ulcer and left foot ulcers well. She had a right lower extremity Lisfranc disarticulation amputation, tendo Achilles lengthening, and wound VAC application performed at an outside facility on February 28, 2019 with inside solar sales consultant Azalia Omer for a gas gangrene infection. She also had left lower extremity ulcer excision with application of advanced wound healing product, ACell matrix. Her clearance fragments from her right foot were negative for osteomyelitis. Her medical records from [facility] were reviewed in detail and it is noted she is also seen by an infectious disease specialist who had her on IV vancomycin and meropenem. She was then discharged and oral Levaquin was recommended. It is also noted a below the knee amputation was recommended initially. She had postoperative Dakin's applied. Her previous microbiology reports demonstrated E faealis, E. coli, Proteus mirabilis, staph epidermidis, and morganii growth. Her last hemoglobin A1c was 8.6% and her albumin on record was 1.9. Her previous postoperative x-ray reports demonstrating adequate amputation and her preoperative MRI report was also reviewed consistent with osteomyelitis and a necrotizing fasciitis. She did get her updated foot x-rays as advised earlier today. She has been nonweightbearing to the right limb and places weight on the toes of her left foot without any protective shoe gear. She was referred to vascular surgery her locally. She is scheduled for 04/22/19 to see nutrition services as recommended. Progress of Wound: Improving bilateral - Physical Exam Vital Signs Temp Pulse Resp BP 98.6 F 93 18 137/79 H 04/16/19 16:40 04/16/19 16:40 04/16/19 16:40 04/16/19 16:40 General: Alert, Oriented x3, Cooperative, No apparent distress Extremities: No cyanosis, Capillary Refill Less than 3 Seconds, No Calf Tenderness, Diminished Peripheral Pulses, Edema Skin: Ulcer/ Wound - No purulence, no erythema, streaking, no odor, no infection. There is exposed granulation tissue and on continue eschar debridement the right plantar foot. There is exposed plantar bone noted in the wound bed and this does not appear to be devitalized discolored or soft. The left foot does have continued ulcer to the lateral aspect which probes deep. There is also no signs of infection the side bilateral lower extremity skin is hairless and atrophic. Wound Measurements and Assessment WC - Nurse 1 - General Ulcer Measurement Start: 04/09/19 16:44 Freq: Status: Active Protocol: Activity Type Activity Date Activity User E-Sign Co-Sign Detail Recorded Client Recorded Date Recorded By Document 04/23/19 16:50 DV [id number] 04/23/19 16:53 DV 04/23/19 16:50 Wound Center Nurse 1 [Ulcer Assessment] #5 LEFT LATERAL FOOT -Combined with other wound No -Current Size (cm) - Length 0.5 -Current Size (cm) - Width 0.4 -Current Size (cm) - Depth 0.1 -Total Square Cm 0.20 -Date of Last Picture (Recall this 04/23/19 field) -Photo Taken Yes -Anesthetic Used 4% Lidocaine Solution #4 LEFT DORSAL FOOT -Combined with other wound No -Current Size (cm) - Length 0.4 -Current Size (cm) - Width 0.4 -Current Size (cm) - Depth 0.1 -Total Square Cm 0.16 -Date of Last Picture (Recall this 04/23/19 field) -Photo Taken Yes -Anesthetic Used 4% Lidocaine Solution #3 right foot -Combined with other wound No -Current Size (cm) - Length 6.2 -Current Size (cm) - Width 2.3 -Current Size (cm) - Depth 2.8 -Total Square Cm 14.26 -Date of Last Picture (Recall this 04/23/19 field) -Photo Taken Yes -Epithelialization None Present -Tunneling No -Undermining/Tunneling No -Circular Undermining No -Anesthetic Used 4% Lidocaine Solution WC - Nurse 2 - General Ulcer CM Notes Start: 04/09/19 16:44 Freq: Status: Active Protocol: Activity Type Activity Date Activity User E-Sign Co-Sign Detail Recorded Client Recorded Date Recorded By Document 04/23/19 17:00 DV [id number] 04/23/19 17:03 DV 04/23/19 17:00 Wound Center Nurse 2 [Procedure/Treatment] #5 LEFT LATERAL FOOT -Time 17:02 -Correct Patient Yes -Correct Side, Site, Position Yes -Correct Procedure Yes -Procedure Performed Yes -Type of Procedure Debridement -Clinical Debridement Subcutaneous -Post Debridement Size (cm) - Length 0.5 -Post Debridement Size (cm) - Width 0.5 -Post Debridement Size (cm) - Depth 0.4 -Total Square Cm 0.25 -Wound/Ulcer Outcome Not Healed -Ulcer Cleansing Rinsed/ Irrigated with Saline -Foul Odor after Cleansing No -Bioengineered Tissue No -Bleeding Controlled with Pressure -Offloading Yes -Type of Offloading Surgical Shoe -Treatment Response Procedure Tolerated Well #4 LEFT DORSAL FOOT -Time 17:02 -Correct Patient Yes -Correct Side, Site, Position Yes -Correct Procedure Yes -Procedure Performed Yes -Type of Procedure Debridement -Clinical Debridement Subcutaneous -Post Debridement Size (cm) - Length 0.5 -Post Debridement Size (cm) - Width 0.5 -Post Debridement Size (cm) - Depth 0.2 -Total Square Cm 0.25 -Wound/Ulcer Outcome Not Healed -Ulcer Cleansing Rinsed/ Irrigated with Saline -Foul Odor after Cleansing No -Bioengineered Tissue No -Bleeding Controlled with Pressure -Offloading No -Treatment Response Procedure Tolerated Well #3 right foot -Time 17:01 -Correct Patient Yes -Correct Side, Site, Position Yes -Correct Procedure Yes -Procedure Performed Yes -Type of Procedure Debridement -Clinical Debridement Subcutaneous -Post Debridement Size (cm) - Length 6.3 -Post Debridement Size (cm) - Width 2.3 -Post Debridement Size (cm) - Depth 2.8 -Total Square Cm 14.49 -Wound/Ulcer Outcome Not Healed -Ulcer Cleansing Rinsed/ Irrigated with Saline -Foul Odor after Cleansing No -Bioengineered Tissue No -Bleeding Controlled with Pressure -Offloading Yes -Type of Offloading Surgical Shoe -Treatment Response Procedure Tolerated Well [See Physician Procedure note for Specifics] Pain Scale: 0-10 Numeric [Pain] -Is Patient Pain Free? Yes Musculoskeletal: No Tenderness to Palpation of Joints or Extremities, Muscle Wasting Neurological: - - Lack of normal epicritic sensation light touch in the right lower extremity and hypersensitivity on the left side Psych/Mental Status: Agitated, Anxious, Impulsive Debridement Note Post-Debridement Measurements/Treatment WC - Nurse 2 - General Ulcer CM Notes Start: 04/09/19 16:44 Freq: Status: Active Protocol: Activity Type Activity Date Activity User E-Sign Co-Sign Detail Recorded Client Recorded Date Recorded By Document 04/09/19 16:54 DAVID [id number] 04/09/19 16:56 Document 04/16/19 16:52 JF [id number] 04/16/19 17:03 JF Document 04/23/19 17:00 DV [id number] 04/23/19 17:03 DV 04/09/19 04/16/19 04/23/19 16:54 16:52 17:00 Wound Center Nurse 2 #5 LEFT LATERAL FOOT -Time 17:00 17:02 -Correct Patient No Yes Yes -Correct Side, Site, Position No Yes Yes -Correct Procedure No Yes Yes -Procedure Performed No Yes Yes -Type of Procedure Debridement Debridement -Clinical Debridement Subcutaneous Subcutaneous -Post Debridement Size (cm) - Length 1.1 0.5 -Post Debridement Size (cm) - Width 0.4 0.5 -Post Debridement Size (cm) - Depth 0.2 0.4 -Total Square Cm 0.44 0.25 -Wound/Ulcer Outcome Not Healed Not Healed -Ulcer Cleansing Rinsed/ Rinsed/ Irrigated with Irrigated with Saline Saline -Foul Odor after Cleansing No No -Bioengineered Tissue No No -Bleeding Controlled with Pressure Pressure -Offloading No Yes -Type of Offloading Surgical Shoe -Treatment Response Procedure Procedure Tolerated Well Tolerated Well #4 LEFT DORSAL FOOT -Time 17:01 17:02 -Correct Patient No No Yes -Correct Side, Site, Position No No Yes -Correct Procedure No No Yes -Procedure Performed No No Yes -Type of Procedure Debridement -Clinical Debridement Subcutaneous -Post Debridement Size (cm) - Length 0.5 -Post Debridement Size (cm) - Width 0.5 -Post Debridement Size (cm) - Depth 0.2 -Total Square Cm 0.25 -Wound/Ulcer Outcome Not Healed Not Healed -Ulcer Cleansing Rinsed/ Irrigated with Saline -Foul Odor after Cleansing No -Bioengineered Tissue No -Bleeding Controlled with Pressure -Offloading No -Treatment Response Procedure Tolerated Well #3 right foot -Time 16:55 16:53 17:01 -Correct Patient Yes Yes Yes -Correct Side, Site, Position Yes Yes Yes -Correct Procedure Yes Yes Yes -Procedure Performed Yes Yes Yes -Type of Procedure Debridement Debridement Debridement -Clinical Debridement Subcutaneous Subcutaneous Subcutaneous -Post Debridement Size (cm) - Length 4 4.5 6.3 -Post Debridement Size (cm) - Width 2.8 3.1 2.3 -Post Debridement Size (cm) - Depth 1.5 2.3 2.8 -Total Square Cm 11.2 13.95 14.49 -Wound/Ulcer Outcome Not Healed Not Healed Not Healed -Ulcer Cleansing Rinsed/ Rinsed/ Rinsed/ Irrigated with Irrigated with Irrigated with Saline Saline Saline -Foul Odor after Cleansing No No No -Bioengineered Tissue No No No -Bleeding Controlled with Pressure Pressure Pressure -Offloading No No Yes -Type of Offloading Surgical Shoe -Treatment Response Procedure Procedure Procedure Tolerated Well Tolerated Well Tolerated Well Pain Scale: 0-10 Numeric Is Patient Pain Free? Yes Yes Yes Wound debrided: plantar foot Laterality: Right Wound Grade/Stage: grade 3 Type of Debridement: Excisional debridement Anesthesia Used: 5% Lidocaine Gel Depth: in the subcutaneous layer Percentage of wound debrided: 100 Instrument Used: #15 blade Tissue Removed: fibrous, devitalized subcutaneous, biofilm, slough Severity: Fat Layer Exposed Amount of bleeding with debridement: Mild Bleeding Controlled with: Pressure Patient tolerated procedure well - Additional Wound Wound debrided: lateral foot Laterality: Left Wound Grade/Stage: grade 2 Type of Debridement: Excisional debridement Anesthesia Used: 5% Lidocaine Gel Depth: in the subcutaneous layer Percentage of wound debrided: 100 Instrument Used: #15 blade Tissue Removed: fibrous, devitalized subcutaneous, biofilm, slough Severity: Limited To Skin Breakdown Amount of bleeding with debridement: Mild Bleeding Controlled with: Pressure Patient tolerated procedure: Patient tolerated procedure well Assessment/Plan Active Problems Type 2 diabetes mellitus with diabetic polyneuropathy (Chronic) Chronic ulcer of left foot with fat layer exposed (Chronic) Malnutrition (Chronic) Delayed wound healing (Chronic) Claudication (Chronic) Amputation of right foot (Acute) Malnutrition (Chronic) Ulcer of right foot with necrosis of muscle (Acute) Non-pressure chronic ulcer of other part of right foot with fat layer exposed (Chronic) Assessment: See current problems Plan: I reviewed and discussed her case today. The ulcer site was debrided and an excisional subcutaneous manner as noted in the clinical nursing panel to the right and left foot today. I recommend she changes the right foot dressing daily with a wound VAC at this time; this was ordered for continuous 150 mmHg. I recommend she changes the left foot dressing daily with Aquacel Ag. Medical records from [facility] were reviewed. It is noted the vascular studies were not included and this will be requested again. Updated noninvasive vascular studies were ordered anyways from [facility] to proceed forward with her treatment plan timely manner. I do recommend she update to the foot x-ray and an order was previously provided. These were reviewed. Right foot Lisfranc disarticulation status is noted without any osseous proliferation, soft tissue emphysema, foreign body, or acute fracture dislocation noted. The left foot x-rays were reviewed without any soft tissue emphysema or foreign body. There is osseous destruction to the fifth metatarsal head region consistent with prior infection or even surgical resection. No acute injuries are noted. I reassured her no local or systemic signs of infection are noted. To complete antibiotic course as advised by her surgeon and infectious disease physician. Recent suture removal as noted by surgeon. She was she was advised to follow-up with infectious disease specialist and podiatric surgeon as advised and scheduled this upcoming Sunday. I recommended improved diabetic management and offered her nutrition referral. She is amendable at this time and referral was provided for local telephone operator. Recommended nutritional supplementation to optimize healing. She has an appointment scheduled for the . To keep pressure off of the ulcer site by heel weightbearing in a surgical shoe on the left foot; an order was previously provided with an offloading heel density Plastizote liner. She admits she did not obtain this because she cannot use this. She reports she cannot get her heel flat and the surgical shoe is uncomfortable and not supportive. Therefore an updated order for a cam walker with offloading liners was provided previously and she was advised to obtain some foot and ankle center for the left lower extremity. To continue with complete nonweightbearing status to the right lower extremity protect her surgical site. To use assistive device. . The right foot condition appears to be consistent with a previous grade 3 ulcer treated successfully medically and surgically. Clearance fragments demonstrate lack of current osteomyelitis. Hyperbaric oxygen therapy is also a treatment option due to the remaining grade 3 infected myositis that appears to be clinically improving. However, she is struggling even arrive during clinic hours or her clinical assessment and transportation and compliance are needed on a daily basis to complete hyperbaric oxygen therapy course. Per her request, an order for hand controlled vehicle access was provided and recommended so she can independantly get to clinic. She was advised to stop smoking because this can also impede healing. We discussed the etiology and anticipated healing and management of this ulcer from a wound care standpoint as well as medical standpoint. She understands she is at continued risk for further limb loss and systemic illness. I recommend she follow-up at the wound healing center 1 week or call sooner if she has any questions or concerns. I answered all of her questions today.
[2019-04-25 15:53] VITALS: BP 161/85; PULSE 91; RESP 16; TEMP 36.6; BMI 27.4
--- NOTE | 2019-04-25 15:58 | WC ---
pt and ex argued on /off during visit ex instructed/teaching provided on wound vac application and removal as he is planning on doing the changes at home
== END 2019-05-03 23:59 ==
LOC: WC 15:30
PROVIDERS: Family Provider Family Medicine; PCP Family Medicine; Referring Provider Podiatrist; Visit Provider Podiatrist
DX: E11.621 Type 2 diabetes mellitus with foot ulcer (principal); E11.42 Type 2 diabetes mellitus with diabetic polyneuropathy; E11.51 Type 2 diabetes mellitus with diabetic peripheral angiopathy without gangrene; L97.522 Non-pressure chronic ulcer of other part of left foot with fat layer exposed; L97.512 Non-pressure chronic ulcer of other part of right foot with fat layer exposed
CPT/HCPCS: 11042; 36415; 80053; 85025; 85652; 86140; 97605

== ENCOUNTER 2019-05-21 15:45 | Outpatient (RCR) | payer OTHER, MEDICARE, SELFPAY ==
[2019-05-04 01:05] VITALS: BP 161/85; PULSE 91; RESP 16; TEMP 36.6
[2019-05-14 16:35] VITALS: BP 168/93; PULSE 91; RESP 16; TEMP 36.4; BMI 27.4
--- NOTE | 2019-05-14 17:03 | PN.PCM_ITS ---
(1) Type 2 diabetes mellitus with diabetic polyneuropathy Status: Chronic Current Visit: Yes Code(s): E11.42 - Type 2 diabetes mellitus with diabetic polyneuropathy (2) Chronic ulcer of left foot with fat layer exposed Status: Chronic Current Visit: Yes Code(s): L97.522 - Non-pressure chronic ulcer of other part of left foot with fat layer exposed (3) Malnutrition Status: Chronic Current Visit: Yes Code(s): E46 - Unspecified protein- calorie malnutrition (4) Delayed wound healing Status: Chronic Current Visit: Yes Code(s): T14.8XXD - Other injury of unspecified body region, subsequent encounter (5) Peripheral vascular disease Status: Suspected Current Visit: Yes Code(s): I73.9 - Peripheral vascular disease, unspecified (6) Claudication Status: Chronic Current Visit: Yes Code(s): I73.9 - Peripheral vascular disease, unspecified (7) 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 Right foot ulcer and recent amputation and tendon lengthening History of Wound: This pleasant and anxious 48-year-old female with multiple comorbidities was seen today for right surgical foot with remaining ulcer and left foot ulcers with remaining ulcer and left foot ulcers well. She had a right lower extremity Lisfranc disarticulation amputation, tendo Achilles lengthening, and wound VAC application performed at an outside facility on February 28, 2019 with sisal picker Azalia Omer for a gas gangrene infection. She also had left lower extremity ulcer excision with application of advanced wound healing product, ACell matrix. Her clearance fragments from her right foot were negative for osteomyelitis. Her medical records from [facility] were reviewed in detail and it is noted she is also seen by an infectious disease specialist who had her on IV vancomycin and meropenem. She was then discharged and oral Levaquin was recommended. It is also noted a below the knee amputation was recommended initially. Her previous microbiology reports demonstrated E faealis, E. coli, Proteus mirabilis, staph epidermidis, and morganii growth. Her last hemoglobin A1c was 8.6% and her albumin on record was 1.9. Her previous postoperative x-ray reports demonstrating adequate amputation and her preoperative MRI report was also reviewed consistent with osteomyelitis and a necrotizing fasciitis. She did get her updated foot x-rays as advised earlier today. She has been nonweightbearing to the right limb and places weight on the toes of her left foot without any protective shoe gear. She was referred to vascular surgery her locally. She did not set this appointment up yet. She canceled her nutrition consultation relates she does not plan on going. She missed her last appointment due to uncontrolled vomiting. She is with her ex- and friend today. She relates she is now not relying on her ex- for transportation. Progress of Wound: Stable - Physical Exam Vital Signs Temp Pulse Resp BP 97.5 F L 91 16 168/93 H 05/14/19 16:35 05/14/19 16:35 05/14/19 16:35 05/14/19 16:35 General: Alert, Oriented x3, Cooperative, No apparent distress Extremities: No cyanosis, Capillary Refill Less than 3 Seconds, No Calf Tenderness, Diminished Peripheral Pulses, Edema Skin: Ulcer/ Wound - Right foot does have an odor with moist eschar at the plantar medial amputation stump flap rotation with exposed bone and joint. Upon debridement the odor is reduced. There is no erythema streaking or acute infection suspected. There is fibrosis lateral tissue noted at the prior incision site and flap closure site. The left foot has a fibrous ulcer near the fifth metatarsal head and she refuses debridement today. There is no erythema, odor, or streaking on the left foot either., - - Right midfoot amputation Wound Measurements and Assessment WC - Nurse 1 - General Ulcer Measurement Start: 05/14/19 16:35 Freq: Status: Active Protocol: Activity Type Activity Date Activity User E-Sign Co-Sign Detail Recorded Client Recorded Date Recorded By Document 05/14/19 16:35 [facility] [id number] 05/14/19 16:41 [facility] 05/14/19 16:35 Wound Center Nurse 1 [Ulcer Assessment] #5 LEFT LATERAL FOOT -Combined with other wound No -Current Size (cm) - Length 0.1 -Current Size (cm) - Width 0.1 -Current Size (cm) - Depth 0.1 -Total Square Cm 0.01 #4 LEFT DORSAL FOOT -Combined with other wound No -Current Size (cm) - Length 0.1 -Current Size (cm) - Width 0.1 -Current Size (cm) - Depth 0.1 -Total Square Cm 0.01 -Photo Taken No #3 right foot -Combined with other wound No -Current Size (cm) - Length 5.5 -Current Size (cm) - Width 2.7 -Current Size (cm) - Depth 1.2 -Total Square Cm 14.85 -Photo Taken No -Epithelialization None Present -Tunneling No -Undermining/Tunneling Yes -Undermining/Tunneling Starts (O' 6 clock) -Undermining/Tunneling Ends (O'clock) 10 -Maximum Distance (cm) 3.8 -Circular Undermining No -Exudate Amt Large -Exudate Type Serosanguineous -Wound Margin Thickened -Granulation Amt Medium (34-66%) -Granulation Quality Pale,Red -Slough/Fibrin Yes -Necrosis Amt Medium (34-66%) -Necrotic Tissue Type Adherent Slough -Texture (Fidelia-wound Skin Appearance) Assessed, Scarring -Moisture (Fidelia-wound Skin Appearance Assessed ) -Color (Fidelia-wound Skin Appearance) Assessed -Temperature (Fidelia-wound Skin No Abnormality Appearance) (Pt Warm) -Tenderness on Palpation (Fidelia-wound Yes Skin Appearance) -Ulcer Cleansing soapy water -Foul Odor after Cleansing No -Anesthetic Used 4% Lidocaine Solution WC - Nurse 2 - General Ulcer CM Notes Start: 05/14/19 16:35 Freq: Status: Active Protocol: Activity Type Activity Date Activity User E-Sign Co-Sign Detail Recorded Client Recorded Date Recorded By Document 05/14/19 16:48 [id number] 05/14/19 16:56 [facility] 05/14/19 16:48 Wound Center Nurse 2 [Procedure/Treatment] #5 LEFT LATERAL FOOT -Correct Patient No -Correct Side, Site, Position No -Correct Procedure No -Procedure Performed No -Wound/Ulcer Outcome Not Healed #4 LEFT DORSAL FOOT -Correct Patient No -Correct Side, Site, Position No -Correct Procedure No -Procedure Performed No -Wound/Ulcer Outcome Not Healed #3 right foot -Time 16:49 -Correct Patient Yes -Correct Side, Site, Position Yes -Correct Procedure Yes -Procedure Performed Yes -Type of Procedure Debridement -Clinical Debridement Subcutaneous -Post Debridement Size (cm) - Length 5.6 -Post Debridement Size (cm) - Width 2.8 -Post Debridement Size (cm) - Depth 1.2 -Total Square Cm 15.68 -Wound/Ulcer Outcome Not Healed -Ulcer Cleansing Rinsed/ Irrigated with Saline -Foul Odor after Cleansing No -Bioengineered Tissue No -Bleeding Controlled with Pressure -Offloading Yes -Treatment Response Procedure Tolerated Well [See Physician Procedure note for Specifics] Pain Scale: 0-10 Numeric [Pain] -Is Patient Pain Free? Yes Musculoskeletal: Muscle Wasting, Tenderness Neurological: - - Lack of normal epicritic sensation light touch consistent with neuropathy in the right foot and hypersensitivity left foot Psych/Mental Status: Normal Affect, Appropriate, Agitated, Anxious Debridement Note Post-Debridement Measurements/Treatment WC - Nurse 2 - General Ulcer CM Notes Start: 05/14/19 16:35 Freq: Status: Active Protocol: Activity Type Activity Date Activity User E-Sign Co-Sign Detail Recorded Client Recorded Date Recorded By Document 05/14/19 16:48 [id number] 05/14/19 16:56 DAVID 05/14/19 16:48 Wound Center Nurse 2 #5 LEFT LATERAL FOOT -Correct Patient No -Correct Side, Site, Position No -Correct Procedure No -Procedure Performed No -Wound/Ulcer Outcome Not Healed #4 LEFT DORSAL FOOT -Correct Patient No -Correct Side, Site, Position No -Correct Procedure No -Procedure Performed No -Wound/Ulcer Outcome Not Healed #3 right foot -Time 16:49 -Correct Patient Yes -Correct Side, Site, Position Yes -Correct Procedure Yes -Procedure Performed Yes -Type of Procedure Debridement -Clinical Debridement Subcutaneous -Post Debridement Size (cm) - Length 5.6 -Post Debridement Size (cm) - Width 2.8 -Post Debridement Size (cm) - Depth 1.2 -Total Square Cm 15.68 -Wound/Ulcer Outcome Not Healed -Ulcer Cleansing Rinsed/ Irrigated with Saline -Foul Odor after Cleansing No -Bioengineered Tissue No -Bleeding Controlled with Pressure -Offloading Yes -Treatment Response Procedure Tolerated Well Pain Scale: 0-10 Numeric Is Patient Pain Free? Yes Wound debrided: distal foot Laterality: Right Wound Grade/Stage: grade 2 Type of Debridement: Excisional debridement Anesthesia Used: 5% Lidocaine Gel Depth: in the subcutaneous layer Percentage of wound debrided: 100 Instrument Used: #15 blade Tissue Removed: fibrous, devitalized subcutaneous, biofilm, slough Severity: Fat Layer Exposed Amount of bleeding with debridement: Mild Bleeding Controlled with: Pressure Patient did not tolerate procedure well Assessment/Plan Active Problems Type 2 diabetes mellitus with diabetic polyneuropathy (Chronic) Chronic ulcer of left foot with fat layer exposed (Chronic) Malnutrition (Chronic) Delayed wound healing (Chronic) Claudication (Chronic) 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 The ulcer site was debrided and an excisional subcutaneous manner as noted in the clinical nursing panel to the right and left foot today. I recommend she changes the right foot dressing daily with saline wet-to-dry gauze packing this area for serial daily minor debridements. She relates she is able to perform this. Wound VAC will be considered again in the future if this tissue quality improves and if she is able to proceed forward with home health and obtaining primary care physician. I recommend she changes the left foot dressing daily with Aquacel Ag to the left lower extremity and it is noted she refuses debridement today on the left foot. Medical records from [facility] were reviewed. It is noted the vascular studies were not included and this will be requested again. Updated n oninvasive vascular studies were ordered anyways from [facility] to proceed forward with her treatment plan timely manner. I do recommend she update to the foot x-ray and an order was previously provided. These were reviewed. Right foot Lisfranc disarticulation status is noted without any osseous proliferation, soft tissue emphysema, foreign body, or acute fracture dislocation noted. The left foot x-rays were reviewed without any soft tissue emphysema or foreign body. There is osseous destruction to the fifth metatarsal head region consistent with prior infection or even surgical resection. No acute injuries are noted. I reassured her no local or systemic signs of infection are noted. To complete antibiotic course as advised by her surgeon and infectious disease physician. Recent suture removal as noted by surgeon. She was she was advised to follow-up with infectious disease specialist and podiatric surgeon as advised and scheduled this upcoming Sunday. I recommended improved diabetic management and offered her nutrition referral. She is amendable at this time and referral was provided for cardiovascular technologist. Recommended nutritional supplementation to optimize healing. She has an appointment scheduled for the . To keep pressure off of the ulcer site by heel weightbearing in a surgical shoe on the left foot; an order was previously provided with an offloading heel density Plastizote liner. She admits she did not obtain this because she cannot use this. She reports she cannot get her heel flat and the surgical shoe is uncomfortable and not supportive. Therefore an updated order for a cam walker with offloading liners was provided previously and she was advised to obtain some foot and ankle center for the left lower extremity. To continue with complete nonweightbearing status to the right lower extremity protect her surgical site. To use assistive device. . The right foot condition appears to be consistent with a previous grade 3 ulcer treated successfully medically and surgically. Clearance fragments demonstrate lack of current osteomyelitis. Hyperbaric oxygen therapy is also a treatment option due to the remaining grade 3 infected myositis that appears to be clinically improving. However, she is struggling even arrive during clinic hours or her clinical assessment and transportation and compliance are needed on a daily basis to complete hyperbaric oxygen therapy course. Per her request, an order for hand controlled vehicle access was provided and recommended so she can independantly get to clinic. She was advised to stop smoking because this can also impede healing. We discussed the etiology and anticipated healing and management of this ulcer from a wound care standpoint as well as medical standpoint. She understands she is at continued risk for further limb loss and systemic illness. I recommend she follow-up at the wound healing center 1 week or call sooner if she has any questions or concerns. I answered all of her questions today.
== END 2019-06-03 23:59 ==
LOC: WC 15:45
PROVIDERS: Family Provider Family Medicine; PCP Family Medicine; Referring Provider Podiatrist; Visit Provider Podiatrist
DX: E11.621 Type 2 diabetes mellitus with foot ulcer (principal); E11.42 Type 2 diabetes mellitus with diabetic polyneuropathy; L97.522 Non-pressure chronic ulcer of other part of left foot with fat layer exposed; L97.512 Non-pressure chronic ulcer of other part of right foot with fat layer exposed; E11.51 Type 2 diabetes mellitus with diabetic peripheral angiopathy without gangrene; Z89.431 Acquired absence of right foot; F17.200 Nicotine dependence, unspecified, uncomplicated
CPT/HCPCS: 11042

== ENCOUNTER 2019-06-18 14:23 | Outpatient (RCR) | payer OTHER, MEDICARE, SELFPAY ==
[2019-05-14 16:35] VITALS: BMI 27.4
[2019-06-04 00:46] VITALS: BP 168/93; PULSE 91; RESP 16; TEMP 36.4
== END 2019-07-04 23:59 ==
LOC: WC 14:23
PROVIDERS: Family Provider Family Medicine; PCP Family Medicine; Referring Provider Podiatrist; Visit Provider Podiatrist
DX: Z09 Encounter for follow-up examination after completed treatment for conditions other than malignant neoplasm (principal)